=== PATIENT | male | born 1975 | race Caucasian/White ===

== ENCOUNTER 2018-06-05 13:59 | Emergency (ER) | payer SELFPAY ==
[2018-06-05] MEDS ORDERED: IPRATROPIUM/ALBUTEROL 0.5-2.5 MG/3 ML AMPUL NEB ONE (14:12)
[2018-06-05] MEDS ORDERED: METHYLPREDNISOLONE INJ 125 MG/2 ML SDV IV ONE (14:13)
[2018-06-05] MEDS ORDERED: NORMAL SALINE 1000 ML 1,000 ML IV ONE (14:15)
--- NOTE | 2018-06-05 14:17 | ER Document Report ---
ED Medical Screen (RME) - General Chief Complaint: Breathing Difficulty Stated Complaint: DIFFICULTY BREATHING,CONGESTION Time Seen by Provider: 06/05/18 14:11 TRAVEL OUTSIDE OF THE [place] IN LAST 30 DAYS: No - Related Data Allergies/Adverse Reactions: No Known Allergies Allergy (Unverified 06/05/18 14:07) Physical Exam - Vital signs Vitals: Temp Pulse Resp BP Pulse Ox 98.3 F 114 H 24 H 141/90 H 93 06/05/18 14:05 06/05/18 14:05 06/05/18 14:05 06/05/18 14:05 06/05/18 14:05 Course - Re-evaluation Re-evalutation: 06/05/18 14:16 This is a 42-year-old gentleman with moderate persistent asthma that presents for evaluation of worsening wheezing over the last month which got much worse today. He is taken 3 breathing treatments of albuterol just prior to arrival and is continuing to have great difficulty in breathing. On examination he is wheezes in all appreciable lung munoz. He is not in a true tripod position but is working to breathe at a higher level than ought be. We will initiate treatment with steroids, magnesium, albuterol. We will obtain a chest x-ray flu swab. I have seen and evaluated this patient in rapid screening evaluation. Workup has been initiated. Further diagnostics appropriate disposition and reevaluation should be performed by a second provider in the emergency department. - Vital Signs Vital signs: Temp Pulse Resp BP Pulse Ox 98.3 F 114 H 24 H 141/90 H 93 06/05/18 14:05 06/05/18 14:05 06/05/18 14:05 06/05/18 14:05 06/05/18 14:05 Doctor's Discharge - Discharge Referrals: LOCAL,NO [Primary Care Provider] - Follow up as needed
[2018-06-05 14:32] LABS: ABSOLUTE BASOPHILS # (AUTO) 0.1 10^3/uL (0.0-0.2); ABSOLUTE EOSINOPHILS # (AUTO) 0.7 10^3/uL (0.0-0.6); ABSOLUTE LYMPHOCYTES (AUTO) 0.9 10^3/uL (0.5-4.7); ABSOLUTE MONOCYTES (AUTO) 0.6 10^3/uL (0.1-1.4); ABSOLUTE NEUT (AUTO) 8.5 10^3/uL (1.7-8.2); BASOPHILS % (AUTO) 0.5 % (0-2); EOSINOPHILS % (AUTO) 6.3 % (0-6); HEMATOCRIT 47.6 % (37.9-51.0); HEMOGLOBIN 16.3 g/dL (13.5-17.0); MEAN CORPUSCULAR HEMOGLOBIN 28.1 pg (27.0-33.4); MEAN CORPUSCULAR HGB CONC 34.2 g/dL (32.0-36.0); MEAN CORPUSCULAR VOLUME 82 fl (80-97); MONOCYTES % (AUTO) 5.7 % (3-13); PLATELET COUNT 255 10^3/uL (150-450); RED BLOOD COUNT 5.81 10^6/uL (4.35-5.55); RED CELL DISTRIBUTION WIDTH 12.2 % (11.5-14.0); SEGMENTED NEUTROPHILS % (AUTO) 79.5 % (42-78); TOTAL CELLS COUNTED % (AUTO) 100 %; WHITE BLOOD COUNT 10.7 10^3/uL (4.0-10.5)
--- NOTE | 2018-06-05 14:40 | RADIOLOGY REPORT (SQ) ---
EXAM DESCRIPTION: CHEST SINGLE VIEW COMPLETED DATE/TIME: 06/05/2018 2:31 pm REASON FOR STUDY: cough, short of breath, right side pneumonia? COMPARISON: None. EXAM PARAMETERS: NUMBER OF VIEWS: One view. TECHNIQUE: Single frontal radiographic view of the chest acquired. RADIATION DOSE: NA LIMITATIONS: None. FINDINGS: LUNGS AND PLEURA: No opacities, masses or pneumothorax. No pleural effusion. MEDIASTINUM AND HILAR STRUCTURES: No masses. Contour normal. HEART AND VASCULAR STRUCTURES: Heart normal in size. Normal vasculature. BONES: No acute findings. HARDWARE: None in the chest. OTHER: No other significant finding. IMPRESSION: NO ACUTE RADIOGRAPHIC FINDING IN THE CHEST. TECHNICAL DOCUMENTATION: JOB ID: [id number] [email or web address] All Rights Reserved Reading location - IP/workstation name: [email or web address]
[2018-06-05] MEDS: MAGNESIUM SULFATE/D5W 1 GM/100 ML RTUPB IV PRN ×2 (14:42→15:15)
[2018-06-05 14:45] LABS: A TYPE INFLUENZA AG NEGATIVE (NEGATIVE); ALANINE AMINOTRANSFERASE 39 U/L (21-72); ALBUMIN 4.5 g/dL (3.5-5.0); ALKALINE PHOSPHATASE 83 U/L (38-126); ANION GAP 11 (5-19); ASPARTATE AMINO TRANSFERASE 31 U/L (17-59); B INFLUENZA AG NEGATIVE (NEGATIVE); BILIRUBIN,DIRECT 0.2 mg/dL (0.0-0.4); BILIRUBIN,TOTAL 0.6 mg/dL (0.2-1.3); BLOOD UREA NITROGEN 13 mg/dL (7-20); CALCIUM 9.7 mg/dL (8.4-10.2); CARBON DIOXIDE 28 mmol/L (22-30); CHLORIDE 98 mmol/L (98-107); GLUCOSE 128 mg/dL (75-110); POTASSIUM 4.7 mmol/L (3.6-5.0); SODIUM 137.4 mmol/L (137-145); TOTAL PROTEIN 7.6 g/dL (6.3-8.2)
--- NOTE | 2018-06-05 14:49 | ER Document Report ---
ED Respiratory Problem - General Mode of Arrival: Ambulatory Information source: Patient TRAVEL OUTSIDE OF THE [place] IN LAST 30 DAYS: No <RAH ROOT - Last Filed: 06/05/18 18:21> <JOY BARRY - Last Filed: 06/05/18 18:38> - General Chief Complaint: Breathing Difficulty Stated Complaint: DIFFICULTY BREATHING,CONGESTION Time Seen by Provider: 06/05/18 14:11 Notes: Patient is a 42 year old male that presents to the emergency department today with complaints of asthma exacerbation. Patient states he has a x20 year history of asthma and has to be hospitalized for asthma once every x3-4 years. Patient states that he has had exposure to cat dander and dust mites recently which he thinks may have lead to his asthma exacerbation. Patient admits to smoking marijuana daily. Patient is on singulair, advair, albuterol, and at home nebulizer treatments for his asthma. Patient states he has a productive cough but has not looked at the color of the sputum. Patient states he was last on steroids and antibiotics x2 months ago. (RAH ROOT) - Related Data Allergies/Adverse Reactions: No Known Allergies Allergy (Unverified 06/05/18 14:07) Past Medical History - General Information source: Patient - Social History Smoking Status: Former Smoker Frequency of alcohol use: None Drug Abuse: Marijuana Family History: Reviewed & Not Pertinent Patient has suicidal ideation: No Patient has homicidal ideation: No Pulmonary Medical History: Reports: Hx Asthma Renal/ Medical History: Denies: Hx Peritoneal Dialysis Past Surgical History: Reports: Hx Vascular Surgery - left carotid artery <RAH ROOT - Last Filed: 06/05/18 18:21> Review of Systems - Review of Systems Constitutional: No symptoms reported EENT: No symptoms reported Cardiovascular: No symptoms reported Respiratory: See HPI, Cough, Short of breath, Wheezing Gastrointestinal: No symptoms reported Genitourinary: No symptoms reported Male Genitourinary: No symptoms reported Musculoskeletal: No symptoms reported Skin: No symptoms reported Hematologic/Lymphatic: No symptoms reported Neurological/Psychological: No symptoms reported -: Yes All other systems reviewed and negative <RAH ROOT - Last Filed: 06/05/18 18:21> Physical Exam <RAH ROOT - Last Filed: 06/05/18 18:21> - Vital signs Vitals: Temp Pulse Resp BP Pulse Ox 98.3 F 114 H 24 H 141/90 H 93 06/05/18 14:05 06/05/18 14:05 06/05/18 14:05 06/05/18 14:05 06/05/18 14:05 - Notes Notes: PHYSICAL EXAM GENERAL: Alert, interacts well. Appears short of breath. HEAD: Normocephalic, atraumatic. EYES: Pupils equal, round, and reactive to light. Extraocular movements intact. ENT: Oral mucosa moist, tongue midline. NECK: Full range of motion. Supple. Trachea midline. LUNGS: Inspiratory rhonchi, expiratory wheezing, tachypneic, prolonged expiratory phase. HEART: Regular rate and rhythm. No murmurs, gallops, or rubs. EXTREMITIES: Moves all 4 extremities spontaneously. NEUROLOGICAL: Alert and oriented x3. Normal speech. PSYCH: Normal affect, normal mood. SKIN: Warm, dry, normal turgor. No rashes or lesions noted. (RAH ROOT) Course - Laboratory Result Diagrams: 06/05/18 14:18 06/05/18 14:18 <RAH ROOT - Last Filed: 06/05/18 18:21> - Laboratory Result Diagrams: 06/05/18 14:18 06/05/18 14:18 <JOY BARRY - Last Filed: 06/05/18 18:38> - Re-evaluation Re-evalutation: 06/05/18 16:21 Patient was rechecked, respiratory distress has significantly improved, patient still has wheezing with auscultation with a stethoscope however it is no longer audible while sitting at side of the bed, he is only mildly tachypneic right now, he is not hypoxic and he is not using accessory muscles of respiration. Patient will have an hour long breathing treatment and then be reassessed. 06/05/18 18:32 CBC shows slight leukocytosis 10.7 otherwise unremarked, venous blood gas grossly unremarkable, CMP unremarkable, troponin negative, flu a and B-, chest x-ray shows no acute process. Patient was given 3 DuoNeb's followed by 10 mg of albuterol as well as 2 bags of magnesium and a liter of fluid, patient was also given 125 Solu-Medrol. It was not until after the treatment of albuterol that the patient's wheezing finally completely resolved. Patient is feeling much better, the wheezing is completely resolved, patient already has a nebulizer at home, he will be placed on a steroid taper and discharged to home. (JOY BARRY) - Vital Signs Vital signs: Temp Pulse Resp BP Pulse Ox 97.7 F 114 H 24 H 141/90 H 93 06/05/18 17:37 06/05/18 14:05 06/05/18 14:05 06/05/18 14:05 06/05/18 14:05 - Laboratory Laboratory results interpreted by me: 06/05/18 06/05/18 14:18 14:18 WBC 10.7 H RBC 5.81 H Seg Neutrophils % 79.5 H Lymphocytes % 8.0 L Eosinophils % 6.3 H Absolute Neutrophils 8.5 H Absolute Eosinophils 0.7 H Glucose 128 H Critical Care Note - Critical Care Note Total time excluding time spent on procedures (mins): 35 <JOY BARRY - Last Filed: 06/05/18 18:38> Discharge <RAH ROOT - Last Filed: 06/05/18 18:21> <JOY BARRY - Last Filed: 06/05/18 18:38> - Discharge Clinical Impression: Acute asthma exacerbation Qualifiers: Asthma severity: severe Asthma persistence: persistent Qualified Code(s): J45.5 1 - Severe persistent asthma with (acute) exacerbation Condition: Stable Disposition: HOME, SELF-CARE Prescriptions: Albuterol Sulfate [Ventolin 0.083% Neb 2.5 mg/3 mL Ampul] 2.5 mg NEB Q4HP PRN #30 vial.neb PRN Reason: Prednisone [Deltasone 10 mg Tablet] 10 mg PO ASDIR PRN #21 tablet PRN Reason: Referrals: RANCHO TSE MD [COMMUNITY BASED STAFF] - Follow up as needed Scribe Attestation: 06/05/18 18:37 I personally performed the services described in the documentation, reviewed and edited the documentation which was dictated to the scribe in my presence, and it accurately records my words and actions. (JOY BARRY) Scribe Documentation - Scribe Written by Scribe:: Adalgisa Joy, 06/05/2018 1528 acting as scribe for :: Fan <RAH ROOT - Last Filed: 06/05/18 18:21>
[2018-06-05 14:58] LABS: VENOUS BLOOD BASE EXCESS 1.3 mmol/L; VENOUS BLOOD HCO3 28.1 mmol/L (20-32); VENOUS BLOOD PCO2 52.8 mmHg (35-63); VENOUS BLOOD PH 7.34 (7.30-7.42)
[2018-06-05] MEDS ORDERED: ALBUTEROL SULFATE 0.083% NEB 2.5 MG/3 ML AMPUL NEB ONE (16:17)
[2018-06-05 18:57] VITALS: BP 134/84
== END 2018-06-05 18:57 | disposition home or self-care (01) ==
LOC: ER 13:59
DX: J45.51 Severe persistent asthma with (acute) exacerbation (principal)
CPT/HCPCS: 94640 ×2; 99291; 96375; 96365; 36415; 85025; 80053; 84484; 82803; 87804; 71045; J2930; J3475; J7030; J7620

== ENCOUNTER 2018-07-30 03:11 | Inpatient (IN) | payer SELFPAY ==
[2018-07-30] MEDS ORDERED: IPRATROPIUM/ALBUTEROL 0.5-2.5 MG/3 ML AMPUL NEB ONE ×2 (03:22→03:23)
[2018-07-30] MEDS ORDERED: METHYLPREDNISOLONE INJ 125 MG/2 ML SDV IV ONE (03:24)
[2018-07-30] MEDS ORDERED: NORMAL SALINE 1000 ML 1,000 ML IV ONE (03:24)
[2018-07-30] MEDS ORDERED: MAGNESIUM SULFATE/D5W 2 GM/200 ML RTUPB IV ONE (03:29)
[2018-07-30] MEDS: MAGNESIUM SULFATE/D5W 1 GM/100 ML RTUPB IV SCH ×2 (03:29→04:00)
[2018-07-30 04:09] LABS: ABSOLUTE EOSINOPHILS # (AUTO) 0.8 10^3/uL (0.0-0.6); ABSOLUTE LYMPHOCYTES (AUTO) 1.6 10^3/uL (0.5-4.7); ABSOLUTE MONOCYTES (AUTO) 0.7 10^3/uL (0.1-1.4); ABSOLUTE NEUT (AUTO) 8.1 10^3/uL (1.7-8.2); BASOPHILS % (AUTO) 0.4 % (0-2); EOSINOPHILS % (AUTO) 7.2 % (0-6); HEMATOCRIT 43.5 % (37.9-51.0); HEMOGLOBIN 14.8 g/dL (13.5-17.0); LYMPHOCYTES % (AUTO) 14.5 % (13-45); MEAN CORPUSCULAR HEMOGLOBIN 27.5 pg (27.0-33.4); MEAN CORPUSCULAR HGB CONC 33.9 g/dL (32.0-36.0); MEAN CORPUSCULAR VOLUME 81 fl (80-97); MONOCYTES % (AUTO) 5.8 % (3-13); PLATELET COUNT 203 10^3/uL (150-450); RED BLOOD COUNT 5.38 10^6/uL (4.35-5.55); RED CELL DISTRIBUTION WIDTH 12.3 % (11.5-14.0); SEGMENTED NEUTROPHILS % (AUTO) 72.1 % (42-78); TOTAL CELLS COUNTED % (AUTO) 100 %; WHITE BLOOD COUNT 11.2 10^3/uL (4.0-10.5)
--- NOTE | 2018-07-30 04:21 | RADIOLOGY REPORT (SQ) ---
EXAM DESCRIPTION: XR CHEST 2 VIEWS COMPLETED DATE/TME: 07/30/2018 03:31 CLINICAL HISTORY: 43 years Male, sob COMPARISON: 06/05/18 NUMBER OF VIEWS/TECHNIQUE: 2, Frontal, Lateral FINDINGS: Increased lung volume, clear parenchyma, normal cardiac silhouette, and intact bony thorax. IMPRESSION: No acute cardiopulmonary findings.
[2018-07-30 04:26] LABS: ALANINE AMINOTRANSFERASE 32 U/L (21-72); ALBUMIN 3.6 g/dL (3.5-5.0); ALKALINE PHOSPHATASE 59 U/L (38-126); ANION GAP 9 (5-19); ASPARTATE AMINO TRANSFERASE 17 U/L (17-59); BILIRUBIN,DIRECT 0.1 mg/dL (0.0-0.4); BILIRUBIN,TOTAL 0.5 mg/dL (0.2-1.3); BLOOD UREA NITROGEN 12 mg/dL (7-20); CALCIUM 8.3 mg/dL (8.4-10.2); CARBON DIOXIDE 26 mmol/L (22-30); CHLORIDE 103 mmol/L (98-107); GLUCOSE 151 mg/dL (75-110); POTASSIUM 3.8 mmol/L (3.6-5.0); SODIUM 137.6 mmol/L (137-145)
[2018-07-30 05:11] LABS: A TYPE INFLUENZA AG NEGATIVE (NEGATIVE); B INFLUENZA AG NEGATIVE (NEGATIVE)
[2018-07-30 05:23] LABS: VENOUS BLOOD BASE EXCESS 1.5 mmol/L; VENOUS BLOOD HCO3 27.3 mmol/L (20-32); VENOUS BLOOD PCO2 47.6 mmHg (35-63); VENOUS BLOOD PH 7.38 (7.30-7.42)
[2018-07-30] MEDS ORDERED: ALBUTEROL SULFATE 0.083% NEB 2.5 MG/3 ML AMPUL NEB ONE (05:25)
--- NOTE | 2018-07-30 05:26 | ER Document Report ---
ED Respiratory Problem - General Chief Complaint: Shortness Of Breath Stated Complaint: DIFFICULTY BREATHING/ASTHMA Time Seen by Provider: 07/30/18 03:33 Notes: Patient is a 43-year-old male presents to the emergency department for generalized respiratory distress. Patient states he does have a history of asthma and has been using his at home albuterol, Advair, Singulair without relief. Patient is denying any generalized cough or congestion. He is also denying any fever. Patient states his asthma started "acting up" around [place] and has never really resolved. Patient is denying any history of intubations or BiPAP use. Patient is denying any chest pain, nausea, vomiting, abdominal pain. Past medical history: Asthma Medications: Albuterol, singular, Advair Allergies: None TRAVEL OUTSIDE OF THE [place] IN LAST 30 DAYS: No - Related Data Allergies/Adverse Reactions: No Known Allergies Allergy (Verified 07/30/18 06:03) Past Medical History - General Information source: Patient - Social History Smoking Status: Former Smoker Frequency of alcohol use: None Drug Abuse: Marijuana Family History: Reviewed & Not Pertinent Patient has suicidal ideation: No Patient has homicidal ideation: No Pulmonary Medical History: Reports: Hx Asthma Renal/ Medical History: Denies: Hx Peritoneal Dialysis Past Surgical History: Reports: Hx Vascular Surgery - left carotid artery Review of Systems - Review of Systems Constitutional: See HPI EENT: See HPI Cardiovascular: See HPI Respiratory: See HPI Gastrointestinal: No symptoms reported Genitourinary: No symptoms reported Male Genitourinary: No symptoms reported Musculoskeletal: No symptoms reported Skin: No symptoms reported Hematologic/Lymphatic: No symptoms reported Neurological/Psychological: No symptoms reported Physical Exam - Vital signs Vitals: Temp Pulse Resp BP Pulse Ox 98.1 F 100 28 H 150/104 H 95 07/30/18 03:15 07/30/18 03:15 07/30/18 03:15 07/30/18 03:15 07/30/18 03:15 - Notes Notes: GENERAL: Alert, interacts well. Tachypneic with tracheal tugging noted HEAD: Normocephalic, atraumatic. EYES: Pupils equal, round, and reactive to light. Extraocular movements intact. ENT: Oral mucosa moist, tongue midline. Nares patent, TM's intact, nonery thematous, nonbulging bilaterally. Pharynx within normal limits no palatal petechiae noted NECK: Full range of motion. Supple. Trachea midline. LUNGS: Diminished inspiratory all lung munoz, wheezes heard on expiration in all lung munoz, no rales, or rhonchi. HEART: Regular rate and rhythm. No murmur ABDOMEN: Soft, non-tender. Non-distended. Bowel sounds present in all 4 quadrants. EXTREMITIES: Moves all 4 extremities spontaneously. No edema, normal radial and dorsalis pedis pulses bilaterally. No cyanosis. BACK: no cervical, thoracic, lumbar midline tenderness. No saddle anesthesia, normal distal neurovascular exam. NEUROLOGICAL: Alert and oriented x3. Normal speech. cranial nerves II through XII grossly intact. PSYCH: Normal affect, normal mood. SKIN: Warm, dry, normal turgor. No rashes or lesions noted. Course - Re-evaluation Re-evalutation: 07/30/18 05:28 Patient now has inspiratory and expiratory wheezes throughout all lung munoz. His room air oxygen saturation is at 91%. He continues to be tachypneic. Continuous albuterol treatment is ordered at this time. Patient's VBG is within normal limits and his influenza testing is negative. Patient's chest x-ray shows no signs of pneumonia, pneumothorax, rib fractures. Awaiting return phone call from Dr. Schmid hospitalist for admission for status asthmaticus. 07/30/18 05:34 Discussed case with hospitalist Dr. Schmid who will admit the patient to [facility]. Patient is currently undergoing a continuous albuterol nebulizer treatment. - Vital Signs Vital signs: Temp Pulse Resp BP Pulse Ox 98.1 F 100 16 132/84 H 93 07/30/18 03:15 07/30/18 03:15 07/30/18 05:30 07/30/18 05:30 07/30/18 05:30 - Laboratory Result Diagrams: 07/30/18 03:54 07/30/18 03:54 Laboratory results interpreted by me: 07/30/18 07/30/18 03:54 03:54 WBC 11.2 H Eosinophils % 7.2 H Absolute Eosinophils 0.8 H Glucose 151 H Calcium 8.3 L Total Protein 6.0 L Discharge - Discharge Clinical Impression: Status asthmaticus Qualifiers: Asthma severity: moderate Asthma persistence: persistent Qualified Code(s): J45.42 - Moderate persistent asthma with status asthmaticus Condition: Stable Disposition: ADMITTED OBSERVATION Admitting Provider: Hospitalist - Dr. Schmid Unit Admitted: Telemetry
[2018-07-30] MEDS ORDERED: CHLORPHENIRAMINE MALEATE 4 MG TABLET PO ONE (05:34)
[2018-07-30] MEDS ORDERED: IPRATROPIUM/ALBUTEROL 0.5-2.5 MG/3 ML AMPUL NEB PRN (05:34)
[2018-07-30] MEDS ORDERED: GUAIFENESIN SYRP 200 MG/10 ML UDC PO PRN (05:34)
[2018-07-30] MEDS ORDERED: ACETAMINOPHEN 325 MG TABLET PO PRN ×2 (05:34)
[2018-07-30] MEDS ORDERED: LEVOFLOXACIN 750 MG/D5W RTU 750 MG/150 ML RTUPB IV ONE (06:00)
[2018-07-30] MEDS ORDERED: FLUTICASONE NASAL SPRAY 50 MCG/SPRY 120 SPRAY/16 GM NASL ONE ×2 (06:00→10:30)
[2018-07-30] MEDS ORDERED: VANCOMYCIN HCL 1,500 MG in DEXTROSE 5%-WATER 250 ML IV ONE (06:20)
[2018-07-30] MEDS: HEPARIN SOD (PORCINE) 5,000 UNIT/ML 1 ML SYRINGE SUBCUT SCH ×3 (06:21→22:09)
[2018-07-30] MEDS: LANSOPRAZOLE 30 MG TAB.RAP.DR PO SCH ×2 (06:21→17:19)
[2018-07-30] MEDS ORDERED: VANCOMYCIN HCL 0 MG in DEXTROSE 5%-WATER 250 ML IV NR (06:30)
--- NOTE | 2018-07-30 06:31 | PDOC H&P ---
History of Present Illness Admission Date/PCP: 07/30/18 05:45 NO LOCALMD Patient complains of: Shortness of breath History of Present Illness: KERON LIRIANO is a 43 year old male with a past medical history of COPD, tobacco dependence, chronic bronchitis and IV drug abuse. Patient presents with 24 hours of worsening shortness of breath associated with wheeze and a nonproductive cough denying fever admitting palpitations. He is started on continuous albuterol nebulizer with minimal improvement and referred to the hospitalist for admission. Patient denies recent antibiotics but admits to recent IV heroin use. Past Medical History Cardiac Medical History: Reports: None Pulmonary Medical History: Reports: Asthma, Bronchitis, Chronic Obstructive Pulmonary Disease (COPD) EENT Medical History: Reports: None Neurological Medical History: Reports: None Endocrine Medical History: Reports: None Renal/ Medical History: Reports: None Malignancy Medical History: Reports: None GI Medical History: Reports: None Musculoskeltal Medical History: Reports: None Psychiatric Medical History: Reports: Substance Abuse, Tobacco Dependency Past Surgical History Past Surgical History: Reports: Vascular Surgery - left carotid artery Social History Information Source: Patient Smoking Status: Former Smoker Frequency of Alcohol Use: Occasional Drugs: Heroin, Marijuana - Advance Directive Resuscitation Status: Full Code Family History Family History: COPD Parental Family History Reviewed: Yes Children Family History Reviewed: Yes Sibling(s) Family History Reviewed.: Yes Medication/Allergy Home Medications: Albuterol Sulfate [Ventolin 0.083% Neb 2.5 mg/3 mL Ampul] 2.5 mg NEB Q4HP PRN #30 vial.neb 06/05/18 Prednisone [Deltasone 10 mg Tablet] 10 mg PO ASDIR PRN #21 tablet 06/05/18 Allergies/Adverse Reactions: No Known Allergies Allergy (Verified 07/30/18 06:03) Review of Systems Constitutional: PRESENT: as per HPI, anorexia, chills, fatigue, weakness, weight loss Eyes: ABSENT: visual disturbances Ears: ABSENT: hearing changes Cardiovascular: PRESENT: palpitations. ABSENT: chest pain, dyspnea on exertion, edema, orthropnea Respiratory: PRESENT: cough, dyspnea, sputum. ABSENT: hemoptysis Gastrointestinal: ABSENT: abdominal pain, constipation, diarrhea, hematemesis, hematochezia, nausea, vomiting Genitourinary: ABSENT: dysuria, hematuria Musculoskeletal: ABSENT: joint swelling Integumentary: ABSENT: rash, wounds Neurological: ABSENT: abnormal gait, abnormal speech, confusion, dizziness, focal weakness, syncope Psychiatric: ABSENT: anxiety, depression, homidical ideation, suicidal ideation Endocrine: ABSENT: cold intolerance, heat intolerance, polydipsia, polyuria Hematologic/Lymphatic: ABSENT: easy bleeding, easy bruising Physical Exam Vital Signs: Temp Pulse Resp BP Pulse Ox 98.1 F 100 16 132/84 H 93 07/30/18 03:15 07/30/18 03:15 07/30/18 05:30 07/30/18 05:30 07/30/18 05:30 Intake & Output 07/28/18 07/29/18 07/30/18 11:59 11:59 11:59 Intake Total 200 Balance 200 Weight 76.5 kg General appearance: PRESENT: cooperative, severe distress, thin Head exam: PRESENT: atraumatic, normocephalic Eye exam: PRESENT: conjunctiva pink, EOMI, PERRLA. ABSENT: scleral icterus Ear exam: PRESENT: normal external ear exam Mouth exam: PRESENT: moist, tongue midline Neck exam: ABSENT: carotid bruit, JVD, lymphadenopathy, thyromegaly Respiratory exam: PRESENT: accessory muscle use, crackles, prolonged expiratory phas, rhonchi, symmetrical, tachypnea, wheezes Cardiovascular exam: PRESENT: +S1, +S2, systolic murmur. ABSENT: diastolic murmur, gallop Pulses: PRESENT: normal dorsalis pedis pul Vascular exam: PRESENT: normal capillary refill GI/Abdominal exam: PRESENT: normal bowel sounds, soft. ABSENT: distended, guarding, mass, organolmegaly, rebound, tenderness Rectal exam: PRESENT: deferred Extremities exam: PRESENT: full ROM, other - Bilateral decubital tracking with scarring suggestive of IV drug abuse, erythema, mild inflammation without exudate or ulcer. ABSENT: calf tenderness, clubbing, pedal edema Neurological exam: PRESENT: alert, awake, oriented to person, oriented to place, oriented to time, oriented to situation, CN II-XII grossly intact. ABSENT: motor sensory deficit Psychiatric exam: PRESENT: appropriate affect, normal mood. ABSENT: homicidal ideation, suicidal ideation Skin exam: PRESENT: dry, intact, warm. ABSENT: cyanosis, rash Results Laboratory Results: 07/30/18 03:54 07/30/18 03:54 07/30/18 07/30/18 07/30/18 03:54 03:54 05:08 WBC 11.2 H RBC 5.38 Hgb 14.8 Hct 43.5 MCV 81 MCH 27.5 MCHC 33.9 RDW 12.3 Plt Count 203 Seg Neutrophils % 72.1 Lymphocytes % 14.5 Monocytes % 5.8 Eosinophils % 7.2 H Basophils % 0.4 Absolute Neutrophils 8.1 Absolute Lymphocytes 1.6 Absolute Monocytes 0.7 Absolute Eosinophils 0.8 H Absolute Basophils 0.0 VBG pH 7.38 VBG pCO2 47.6 VBG HCO3 27.3 VBG Base Excess 1.5 Sodium 137.6 Potassium 3.8 Chloride 103 Carbon Dioxide 26 Anion Gap 9 BUN 12 Creatinine 0.80 Est GFR ( Amer) > 60 Est GFR (Non-Af Amer) > 60 Glucose 151 H Calcium 8.3 L Total Bilirubin 0.5 AST 17 ALT 32 Alkaline Phosphatase 59 Total Protein 6.0 L Albumin 3.6 Impressions: Chest X-Ray 07/30/18 03:31 IMPRESSION: No acute cardiopulmonary findings. Assessment & Plan - Diagnosis (1) Pneumonia Is this a current diagnosis for this admission?: Yes Plan: Complicated by IV drug use, empiric antibiotics initiated, albuterol and Atrovent, follow-up CBC and blood culture (2) COPD exacerbation Is this a current diagnosis for this admission?: Yes Plan: Albuterol and Atrovent, flutter valve, Solu-Medrol. (3) IV drug abuse Is this a current diagnosis for this admission?: Yes Plan: Patient admits recent IV heroin use, anticipate withdrawal, consider opiates as needed, follow-up CT chest and 2D echo (4) Systolic murmur Is this a current diagnosis for this admission?: Yes Plan: Complicated by IV drug abuse, follow-up 2D echo and blood culture. Vancomycin initiated empirically - Time Time Spent: 50 to 70 Minutes - Inpatient Certification Medical Necessity: Need Close Monitoring Due to Risk of Patient Decompensation
--- NOTE | 2018-07-30 06:56 | RADIOLOGY REPORT (SQ) ---
EXAM DESCRIPTION: CT CHEST WITHOUT IV CONTRAST COMPLETED DATE/TME: 07/30/2018 00:00 CLINICAL HISTORY: 43 years Male, reactive airway c iv drug abuse Comparison: None. Technique: No contrast. Coronal and sagittal reformat. This exam was performed according to our departmental dose-optimization program, which includes automated exposure control, adjustment of the mA and/or kV according to patient size and/or use of iterative reconstruction technique. [facility]: Dose Right [facility]: CareDose [facility]: Dose Right [facility]: Teradose 4D [facility]: [employer] LIMITATIONS: None Findings: Mild mixed interstitial and scattered groundglass patchiness of bilateral upper lobes. Increased lung volume. Unenhanced inferior neck, axillae, mediastinum, airway, lymphatics, heart, vasculature, upper abdomen, and musculoskeleton appear otherwise unremarkable. Impression: Mild scattered groundglass patchiness bilateral upper lobes may indicate atypical pneumonitis. Differential diagnosis includes interstitial lung disease.
--- NOTE | 2018-07-30 07:34 | EKG REPORT ---
SEVERITY:- OTHERWISE NORMAL ECG - SINUS TACHYCARDIA RIGHT AXIS DEVIATION : Confirmed by: Henry Mckinnon MD 30-Jul-2018 07:33:27
[2018-07-30] MEDS: IPRATROPIUM/ALBUTEROL 0.5-2.5 MG/3 ML AMPUL NEB SCH ×3 (07:51→21:59)
[2018-07-30] MEDS ORDERED: PIPERACILLIN/TAZOBACTAM 4.5 GM VIAL IV ONE (09:01)
[2018-07-30] MEDS: PIPERACILLIN SODIUM/TAZOBACTAM 4.5 GM in NORMAL SALINE 100 ML IV SCH ×2 (11:39→17:22)
[2018-07-30] MEDS: METHYLPREDNISOLONE INJ 125 MG/2 ML SDV IV SCH ×2 (13:05→22:09)
[2018-07-30] MEDS: LORAZEPAM INJ 2 MG/1 ML VIAL IV PRN (13:05)
--- NOTE | 2018-07-30 17:30 | Progress Note ---
Provider Note Provider Note: This is a 43 years old male patient who presented with chief complaint of difficulty breathing and shortness of breath. Patient has past medical history of tobacco dependence, COPD and IV drug abuse. Patient admits that he has been using IV heroin. The admitting physician suspected new onset murmur so his working him up for infective endocarditis. His blood culture and echo are pending. Patient has been started empirically on vancomycin by the on-call physician and added Zosyn on top . I accept this patient and I will follow him
--- NOTE | 2018-07-30 18:51 | XCELERA REPORT ---
[address] [address] Transthoracic Echocardiogram Report Name: KERON LIRIANO Age: 43 yrs Gender: Male : 1975 Patient Status: Inpatient Patient Location: [address] [place] [address] Study Date: 07/30/2018 02:50 PM Height: 71 in Weight: 168 lb BSA: 2.0 m2 Procedure: A two-dimensional transthoracic echocardiogram with color flow and Doppler was performed. Study Quality: Good. Reason For Study: iv drug abuse systolic murmur History: iv drug abuse systolic murmur. Ordering Physician: MAMI SCHNEIDER Performed By: Andreea Peguero Interpretation Summary The left ventricle is normal in size. There is normal left ventricular wall thickness. LV EF is > than 70% The left ventricular ejection fraction is within normal limits. Doppler measurements suggest impaired left ventricular relaxation, which is associated with grade I/IV or mild diastolic dysfunction The left ventricular wall motion is normal. There is no thrombus. There is no ventricular septal defect visualized. The right ventricle is normal in size and function. The right atrium is normal. The left atrial size is normal. The interatrial septum is intact with no evidence for an atrial septal defect. There is no Doppler evidence for an interatrial shunt Thre is mild bowing of the anterior mitral valve leaflet without any prolapse. There is no vegetation seen on the mitral valve. There is no mitral valve stenosis. There is a trace amount of mitral regurgitation There is no aortic valvular vegetation. There is no aortic valve stenosis There is no LVOT obstruction. No aortic regurgitation is present. There is no tricuspid valve vegetation. There is no tricuspid stenosis. There is a trace amount of tricuspid regurgitation Right ventricular systolic pressure is normal. RVSP is 23 to 28 mm of Hg , with RA mean of 5 to 10. There is no pulmonic valvular stenosis. There is no pulmonic valvular regurgitation. The aortic root is normal size. The inferior vena cava appeared normal and decreased > 50% with respiration (RAP 5-10 mmHg) There is no pericardial effusion. MMode/2D Measurements & Calculations RVDd: 3.3 cm LVIDd: 4.7 cm FS: 46.2 % Ao root diam: 3.3 cm IVSd: 0.97 cm LVIDs: 2.5 cm EDV(Teich): LVPWd: 1.00 cm 102.6 ml Ao root area: ESV(Teich): 8.7 cm2 23.0 ml EF(Teich): 77.6 % EDV(MOD-sp4): SV(MOD-sp4): 105.2 ml 68.6 ml ESV(MOD-sp4): 36.6 ml EF(MOD-sp4): 65.2 % Doppler Measurements & Calculations MV E max vadim: MV dec slope: Ao V2 max: LV V1 max P.7 cm/sec 137.0 cm/sec 5.4 mmHg MV A max vadim: 257.9 cm/sec2 Ao max PG: LV V1 max: 78.0 cm/sec MV dec time: 0.26 sec7.5 mmHg 116.6 cm/sec MV E/A: 0.86 PA V2 max: TR max vadim: 110.6 cm/sec 214.4 cm/sec PA max P.9 mmHg TR max P.4 mmHg Left Ventricle The left ventricle is normal in size. There is normal left ventricular wall thickness. LV EF is > than 70%. The left ventricular ejection fraction is within normal limits. Doppler measurements suggest impaired left ventricular relaxation, which is associated with grade I/IV or mild diastolic dysfunction. The left ventricular wall motion is normal. There is no thrombus. There is no ventricular septal defect visualized. Right Ventricle The right ventricle is normal in size and function. Atria The right atrium is normal. The left atrial size is normal. The interatrial septum is intact with no evidence for an atrial septal defect. There is no Doppler evidence for an interatrial shunt. Mitral Valve Thre is mild bowing of the anterior mitral valve leaflet without any prolapse. There is no vegetation seen on the mitral valve. There is no mitral valve stenosis. There is a trace amount of mitral regurgitation. Aortic Valve There is no aortic valvular vegetation. There is no aortic valve stenosis. There is no LVOT obstruction. No aortic regurgitation is present. Tricuspid Valve There is no tricuspid valve vegetation. There is no tricuspid stenosis. There is a trace amount of tricuspid regurgitation. Right ventricular systolic pressure is normal. RVSP is 23 to 28 mm of Hg , with RA mean of 5 to 10. Pulmonic Valve There is no pulmonic valvular stenosis. There is no pulmonic valvular regurgitation. Great Vessels The aortic root is normal size. The inferior vena cava appeared normal and decreased > 50% with respiration (RAP 5-10 mmHg). Effusions There is no pericardial effusion. : MAMI SCHNEIDER Lakshmi
[2018-07-30] MEDS: VANCOMYCIN HCL 1,000 MG in DEXTROSE 5%-WATER 250 ML IV SCH (22:10)
[2018-07-30] MEDS: FLUTICASONE NASAL SPRAY 50 MCG/SPRY 120 SPRAY/16 GM NASL SCH (22:11)
[2018-07-31] MEDS: PIPERACILLIN SODIUM/TAZOBACTAM 4.5 GM in NORMAL SALINE 100 ML IV SCH ×4 (00:50→17:31)
[2018-07-31] MEDS: IPRATROPIUM/ALBUTEROL 0.5-2.5 MG/3 ML AMPUL NEB SCH ×4 (02:03→20:35)
[2018-07-31 04:37] LABS: HEPATITIS A AB IGM Negative (Negative); HEPATITIS B CORE AB IGM Negative (Negative); HEPATITS B SURFACE ANTIGEN Negative (Negative)
[2018-07-31] MEDS: VANCOMYCIN HCL 1,000 MG in DEXTROSE 5%-WATER 250 ML IV SCH ×3 (05:00→22:10)
[2018-07-31] MEDS: METHYLPREDNISOLONE INJ 125 MG/2 ML SDV IV SCH ×3 (05:38→22:10)
[2018-07-31 05:46] LABS: ANION GAP 13 (5-19); BLOOD UREA NITROGEN 19 mg/dL (7-20); CALCIUM 9.5 mg/dL (8.4-10.2); CARBON DIOXIDE 24 mmol/L (22-30); CHLORIDE 102 mmol/L (98-107); GLUCOSE 143 mg/dL (75-110); POTASSIUM 5.1 mmol/L (3.6-5.0)
[2018-07-31 06:28] LABS: HEMATOCRIT 42.6 % (37.9-51.0); HEMOGLOBIN 14.4 g/dL (13.5-17.0); MEAN CORPUSCULAR HEMOGLOBIN 27.4 pg (27.0-33.4); MEAN CORPUSCULAR HGB CONC 33.7 g/dL (32.0-36.0); MEAN CORPUSCULAR VOLUME 81 fl (80-97); PLATELET COUNT 221 10^3/uL (150-450); RED BLOOD COUNT 5.24 10^6/uL (4.35-5.55); RED CELL DISTRIBUTION WIDTH 12.6 % (11.5-14.0); WHITE BLOOD COUNT 13.1 10^3/uL (4.0-10.5)
[2018-07-31] MEDS: LANSOPRAZOLE 30 MG TAB.RAP.DR PO SCH ×2 (06:47→17:27)
[2018-07-31] MEDS: HEPARIN SOD (PORCINE) 5,000 UNIT/ML 1 ML SYRINGE SUBCUT SCH ×3 (06:47→22:11)
[2018-07-31 07:27] LABS: ABSOLUTE LYMPHOCYTES# (MANUAL) 0.7 10^3/uL (0.5-4.7); ABSOLUTE MONOCYTES # (MANUAL) 0.3 10^3/uL (0.1-1.4); ABSOLUTE NEUTROPHILS# (MANUAL) 12.2 10^3/uL (1.7-8.2); BAND NEUTROPHILS % (MANUAL) 2 % (3-5); BASOPHILS % (MANUAL) 0 % (0-2); EOSINOPHILS % (MANUAL) 0 % (0-6); LYMPHOCYTES % (MANUAL) 5 % (13-45); MONOCYTES % (MANUAL) 2 % (3-13); SEGMENTED NEUTROPHILS % (MAN) 91 % (42-78); TOTAL CELLS COUNTED 100
[2018-07-31 07:28] LABS: PLATELET COMMENT ADEQUATE; RBC MORPHOLOGY COMMENT NORMO-CYTIC/CHROMIC; TOXIC GRANULATION SLIGHT
[2018-07-31 07:35] LABS: HEPATITIS C VIRUS ANTIBODY <0.1 s/co ratio (0.0-0.9)
[2018-07-31] MEDS: FLUTICASONE NASAL SPRAY 50 MCG/SPRY 120 SPRAY/16 GM NASL SCH ×2 (09:57→22:10)
[2018-07-31] MEDS: LORAZEPAM INJ 2 MG/1 ML VIAL IV PRN (09:57)
[2018-07-31] MEDS ORDERED: LEVOFLOXACIN 750 MG/D5W RTU 750 MG/150 ML RTUPB IV SCH (10:00)
[2018-08-01] MEDS: PIPERACILLIN SODIUM/TAZOBACTAM 4.5 GM in NORMAL SALINE 100 ML IV SCH ×3 (00:52→13:36)
[2018-08-01] MEDS: IPRATROPIUM/ALBUTEROL 0.5-2.5 MG/3 ML AMPUL NEB SCH ×3 (01:50→13:54)
[2018-08-01] MEDS: VANCOMYCIN HCL 1,000 MG in DEXTROSE 5%-WATER 250 ML IV SCH (05:53)
[2018-08-01] MEDS: HEPARIN SOD (PORCINE) 5,000 UNIT/ML 1 ML SYRINGE SUBCUT SCH ×2 (05:53→13:36)
[2018-08-01] MEDS: METHYLPREDNISOLONE INJ 125 MG/2 ML SDV IV SCH ×2 (05:53→13:36)
[2018-08-01] MEDS: LANSOPRAZOLE 30 MG TAB.RAP.DR PO SCH (05:53)
[2018-08-01 07:07] LABS: VANCOMYCIN,TROUGH 9.1 ug/mL (5.0-20.0)
[2018-08-01] MEDS ORDERED: VANCOMYCIN HCL 500 MG in DEXTROSE 5%-WATER 100 ML IV ONE (08:00)
--- NOTE | 2018-08-01 08:48 | PDOC PROGRESS REPORT ---
Subjective Progress Note for:: 07/31/18 Subjective:: Patient feels better today. Breathing is more comfortable. Reason For Visit: COPD EXACERBATION BRONCHITIS REACTIVE AIRWAY DZ Physical Exam Vital Signs: Temp Pulse Resp BP Pulse Ox 97.8 F 101 H 18 134/80 H 95 07/31/18 15:40 07/31/18 15:40 07/31/18 15:40 07/31/18 15:40 07/31/18 15:40 Pulse Oximeter Continuous Start: 07/30/18 05:34 Freq: RTQ4 Status: Complete Protocol: Document 07/30/18 12:00 [facility] (Rec: 07/30/18 12:01 [facility] [id number]) Pulse Oximetry Assessment Oxygen Saturation (92-100) 97 Oxygen Flow Rate (L/min) 2 Oxygen Delivery Method Nasal Cannula Equipment Usage Equipment Standby Continuous SpO2 Machine # -- Intake & Output 07/30/18 07/31/18 08/01/18 06:59 06:59 06:59 Intake Total 1200 2550 450 Output Total 575 1100 Balance 625 1450 450 Weight 76.5 kg 78.4 kg General appearance: PRESENT: no acute distress, cooperative, well-developed Head exam: PRESENT: normocephalic Ear exam: PRESENT: normal external ear exam Respiratory exam: PRESENT: symmetrical, unlabored, wheezes - Scattered inspiratory and expiratory. ABSENT: accessory muscle use, rales, rhonchi, stridor Cardiovascular exam: PRESENT: RRR, +S1, +S2, systolic murmur - 2/6 GI/Abdominal exam: PRESENT: normal bowel sounds, soft. ABSENT: distended, tenderness Musculoskeletal exam: PRESENT: normal inspection Neurological exam: PRESENT: alert, awake, oriented to person, oriented to place, oriented to time, oriented to situation, CN II-XII grossly intact Psychiatric exam: PRESENT: appropriate affect, normal mood. ABSENT: agitated, anxious Focused psych exam: ABSENT: delusional, restlessness Results Laboratory Results: 07/31/18 04:22 07/31/18 04:22 07/31/18 07/31/18 04:22 04:22 WBC 13.1 H RBC 5.24 Hgb 14.4 Hct 42.6 MCV 81 MCH 27.4 MCHC 33.7 RDW 12.6 Plt Count 221 Seg Neutrophils % Not Reportable Lymphocytes % Not Reportable Monocytes % Not Reportable Eosinophils % Not Reportable Basophils % Not Reportable Absolute Neutrophils Not Reportable Absolute Lymphocytes Not Reportable Absolute Monocytes Not Reportable Absolute Eosinophils Not Reportable Absolute Basophils Not Reportable Sodium 139.0 Potassium 5.1 H Chloride 102 Carbon Dioxide 24 Anion Gap 13 BUN 19 Creatinine 0.95 Est GFR ( Amer) > 60 Est GFR (Non-Af Amer) > 60 Glucose 143 H Calcium 9.5 Impressions: Chest X-Ray 07/30/18 03:31 IMPRESSION: No acute cardiopulmonary findings. Assessment & Plan - Diagnosis (1) Pneumonia Qualifiers: Pneumonia type: due to unspecified organism Laterality: bilateral Is this a current diagnosis for this admission?: Yes Plan: Bilateral groundglass appearance on CT scan. Possible atypical pneumonitis. No significant productive cough. Still with bilateral wheezes. Will continue current antibiotic therapy. The patient does have a history of IV drug use. There were no areas consistent with septic emboli by CT scan. (2) COPD exacerbation Is this a current diagnosis for this admission?: Yes Plan: Oxygen supplementation with aggressive inhaler regimen. (3) Systolic murmur Is this a current diagnosis for this admission?: Yes Plan: With history of IV drug use and murmur endocarditis is a consideration. The patient did have a positive blood culture for gram-positive cocci. Awaiting final results. Could still be a contaminant. The patient is on Zosyn and vancomycin at this time. (4) IV drug abuse Is this a current diagnosis for this admission?: Yes Plan: The patient was on Subutex as an outpatient. Monitor for any evidence of withdrawal since his last use of her when he was a few days prior to admission. - Time Time Spent with patient: 15-24 minutes Medications reviewed and adjusted accordingly: Yes Anticipated discharge: Home
[2018-08-01] MEDS: FLUTICASONE NASAL SPRAY 50 MCG/SPRY 120 SPRAY/16 GM NASL SCH (09:15)
[2018-08-01] MEDS ORDERED: VANCOMYCIN HCL 1,500 MG in DEXTROSE 5%-WATER 250 ML IV SCH (14:00)
[2018-08-01 15:36] VITALS: BP 120/78
--- NOTE | 2018-08-01 19:45 | PDOC DISCHARGE SUMMARY ---
General - Admit/Disc Date/PCP Admission Date/Primary Care Provider: 07/30/18 09:17 Discharge Date: 08/01/18 - Discharge Diagnosis (1) Pneumonia Is this a current diagnosis for this admission?: Yes Summary: The patient is already off of oxygen therapy. His breathing is much easier. He still has trace wheeze with occasional rhonchi but he is stable for home. He does agree with this plan. He will continue antibiotic therapy with levofloxacin. He should follow-up with his primary care physician in 7-10 days. (2) COPD exacerbation Is this a current diagnosis for this admission?: Yes Summary: Smoking cessation encouraged. He does have a nebulizer at home and he did give a prescription for DuoNeb on an as-needed basis. Will also be on a prednisone taper. Between exacerbations he has done well without scheduled inhaler therapy. He may be getting to the point where he would benefit from a combination inhaler such as Advair or Symbicort. (3) Systolic murmur Is this a current diagnosis for this admission?: Yes Summary: The patient did have an echocardiogram. It is a transthoracic but there was no evidence of vegetation. Ejection fraction is preserved. The patient has been afebrile. Only 1 bottle of 4 was positive on blood culture. This is likely contaminant. I explained all this to the patient. I told him that I felt with his current clinical picture endocarditis is extremely unlikely. He will be discharged on medications for pneumonia. (4) IV drug abuse Is this a current diagnosis for this admission?: Yes Summary: The patient was on Subutex at home. This indicates that he is in touch with some form of a treatment program. Continue with the same. - Additional Information Resuscitation Status: Full Code Discharge Diet: Regular Discharge Activity: Activity As Tolerated Prescriptions: Fluticasone Propionate [Flonase Nasal [place] 50 Mcg/Charlotte 16 gm] 2 spray NASL Q12 30 Days #1 spray.pump Ipratropium/Albuterol Sulfate [Duoneb 3 ml Ampul] 3 ml NEB Q6HP PRN #50 vial.neb PRN Reason: For Wheezing Levofloxacin [Levaquin 750 mg Tablet] 750 mg PO DAILY #5 tablet Prednisone [Deltasone 10 mg Tablet] 10 mg PO ASDIR PRN 12 Days #30 tablet PRN Reason: Home Medications: Albuterol Sulfate [Proair HFA Inhalation Aerosol 8.5 gm MDI] 1 puff IH Q4HP PRN 07/30/18 Albuterol Sulfate [Ventolin 0.083% Neb 2.5 mg/3 mL Ampul] 2.5 mg NEB RTQ4HP PRN 07/30/18 Buprenorphine HCl [Subutex 8 mg Sublingual Tablet] 8 mg PO 0800,1200 07/30/18 Ibuprofen [Motrin 800 mg Tablet] 800 mg PO Q8HP PRN 07/30/18 Naproxen [Naprosyn] 500 mg PO BID 07/30/18 Fluticasone Propionate [Flonase Nasal [place] 50 Mcg/[place] 16 gm] 2 spray NASL Q12 30 Days #1 spray.pump 08/01/18 Ipratropium/Albuterol Sulfate [Duoneb 3 ml Ampul] 3 ml NEB Q6HP PRN #50 vial.neb 08/01/18 Levofloxacin [Levaquin 750 mg Tablet] 750 mg PO DAILY #5 tablet 08/01/18 Prednisone [Deltasone 10 mg Tablet] 10 mg PO ASDIR PRN 12 Days #30 tablet 08/01/18 History of Present Illness Patient complains of: Shortness of breath History of Present Illness: KERON LIRIANO is a 43 year old male with a history of COPD, tobacco dependence and intravenous drug use. Over the 24 hours prior to admission he developed worsening shortness of breath with a nonproductive cough and bilateral wheezing. He was found to be hypoxic during the evaluation in the emergency department. He had a minimally elevated white blood cell count. He was given nebulizer treatments, supplemental oxygen, antibiotics and referred to the hospitalist service for admission. Hospital Course Hospital Course: See above as well. The patient actually exhibited a quick recovery. He has been off of oxygen and quite comfortable. His wheeze is almost completely resolved. He does not have a productive cough and is afebrile. Physical Exam Vital Signs: Temp Pulse Resp BP Pulse Ox 97.6 F 78 16 133/74 H 97 08/01/18 11:53 08/01/18 13:54 08/01/18 13:54 08/01/18 11:53 08/01/18 13:54 Pulse Oximeter Continuous Start: 07/30/18 05:34 Freq: RTQ4 Status: Complete Protocol: Document 07/30/18 12:00 [facility] (Rec: 07/30/18 12:01 [facility] [id number]) Pulse Oximetry Assessment Oxygen Saturation (92-100) 97 Oxygen Flow Rate (L/min) 2 Oxygen Delivery Method Nasal Cannula Equipment Usage Equipment Standby Continuous SpO2 Machine # -- Intake & Output 07/31/18 08/01/18 08/02/18 06:59 06:59 06:59 Intake Total 2550 2657 Output Total 1100 1750 Balance 1450 907 Weight 78.4 kg 78.4 kg General appearance: PRESENT: no acute distress, cooperative, well-developed Respiratory exam: PRESENT: symmetrical, unlabored, wheezes - Faint sporadic wheeze. ABSENT: rales, rhonchi Cardiovascular exam: PRESENT: RRR, +S1, +S2, systolic murmur - 2/6 GI/Abdominal exam: PRESENT: normal bowel sounds, soft. ABSENT: distended, tenderness Neurological exam: PRESENT: alert, awake, oriented to person, oriented to place, oriented to time, oriented to situation, CN II-XII grossly intact Psychiatric exam: PRESENT: appropriate affect, normal mood. ABSENT: agitated, anxious Focused psych exam: ABSENT: delusional, restlessness Results Laboratory Results: 07/31/18 04:22 07/31/18 04:22 Impressions: Chest X-Ray 07/30/18 03:31 IMPRESSION: No acute cardiopulmonary findings. Qualifiers - * PATIENT BEING DISCHARGED WITH ANY OF THE FOLLOWING DIAGNOSIS: No Plan Time Spent: Greater than 30 Minutes
== END 2018-08-01 16:19 | disposition home or self-care (01) | DRG 194 ==
LOC: ER 03:11 → EH 05:45 → 5 07:21 → OBSVTOIN 09:17
PROVIDERS: ADMIT Internal Medicine; ATTEND Internal Medicine
DX: J18.9 Pneumonia, unspecified organism (principal); J44.0 Chronic obstructive pulmonary disease with (acute) lower respiratory infection; J44.1 Chronic obstructive pulmonary disease with (acute) exacerbation; F11.10 Opioid abuse, uncomplicated; F12.90 Cannabis use, unspecified, uncomplicated; R01.1 Cardiac murmur, unspecified; Z79.899 Other long term (current) drug therapy; F17.200 Nicotine dependence, unspecified, uncomplicated
CPT/HCPCS: 36415; 71046; 71250; 80048; 80053; 80074; 80202; 82803; 82962; 85025; 86701; 87040; 87077; 87804; 93005; 93010; 93306; 94640; 94667; 94668; 94799; 96365; 96367; 96372; 96375; 99285; J1644; J1956; J2060; J2543; J2930; J3370; J3475; J3490; J7030; J7060; J7620

== ENCOUNTER 2019-07-20 18:35 | Emergency (ER) | payer BC, OTHER ==
[2019-07-20] MEDS ORDERED: IPRATROPIUM/ALBUTEROL 0.5-2.5 MG/3 ML AMPUL NEB ONE ×2 (19:26→21:06)
[2019-07-20] MEDS ORDERED: METHYLPREDNISOLONE INJ 125 MG/2 ML SDV IV ONE (19:26)
--- NOTE | 2019-07-20 19:28 | ER Document Report ---
ED Medical Screen (RME) - General Chief Complaint: Breathing Difficulty Stated Complaint: DIFFICULTY BREATHING Time Seen by Provider: 07/20/19 19:24 Mode of Arrival: Ambulatory Information source: Patient Notes: Patient presents complaint of difficulty breathing that started yesterday. Patient denies any chest pain. Patient does complain of upper back tenderness. No fever, no nausea or vomiting. Patient has a history of asthma and does state he is required intubation before due to exacerbations in the past. Patient with diffuse wheezing bilaterally. I have greeted and performed a rapid initial assessment of this patient. A comprehensive ED assessment and evaluation of the patient, analysis of test results and completion of the medical decision making process will be conducted by additional ED providers. TRAVEL OUTSIDE OF THE [place] IN LAST 30 DAYS: No - Related Data Allergies/Adverse Reactions: No Known Allergies Allergy (Verified 07/30/18 06:03) Past Medical History Pulmonary Medical History: Reports: Hx Asthma, Hx Bronchitis, Hx COPD Renal/ Medical History: Denies: Hx Peritoneal Dialysis Psychiatric Medical History: Reports: Hx Depression Past Surgical History: Reports: Hx Vascular Surgery - left carotid artery Physical Exam - Vital signs Vitals: Temp Pulse Resp BP Pulse Ox 98.3 F 80 22 H 142/90 H 95 07/20/19 19:03 07/20/19 19:03 07/20/19 19:03 07/20/19 19:03 07/20/19 19:03 - Respiratory Respiratory status: Tachypnea Breath sounds: Nonproductive cough, Wheezing - Diffuse wheezing bilaterally Course - Vital Signs Vital signs: Temp Pulse Resp BP Pulse Ox 98.3 F 80 22 H 142/90 H 95 07/20/19 19:03 07/20/19 19:03 07/20/19 19:03 07/20/19 19:03 07/20/19 19:03
--- NOTE | 2019-07-20 20:04 | RADIOLOGY REPORT (SQ) ---
EXAM DESCRIPTION: CHEST 2 VIEWS COMPLETED DATE/TIME: 07/20/2019 7:40 pm REASON FOR STUDY: diff breathing COMPARISON: Chest x-ray 07/30/2018, 06/05/2018. CT chest 07/30/2018. EXAM PARAMETERS: NUMBER OF VIEWS: two views TECHNIQUE: Digital Frontal and Lateral radiographic views of the chest acquired. RADIATION DOSE: NA LIMITATIONS: none FINDINGS: LUNGS AND PLEURA: No consolidation, pneumothorax or pleural effusion. MEDIASTINUM AND HILAR STRUCTURES: No masses or contour abnormalities. HEART AND VASCULAR STRUCTURES: Heart normal size. No evidence for failure. BONES: No acute findings. HARDWARE: None in the chest. IMPRESSION: NO ACUTE RADIOGRAPHIC FINDING IN THE CHEST. TECHNICAL DOCUMENTATION: JOB ID: [id number] [employer]- All Rights Reserved Reading location - IP/workstation name: [email or web address]
[2019-07-20 20:09] LABS: HEMATOCRIT 44.5 % (37.9-51.0); HEMOGLOBIN 15.3 g/dL (13.5-17.0); MEAN CORPUSCULAR HEMOGLOBIN 27.9 pg (27.0-33.4); MEAN CORPUSCULAR HGB CONC 34.4 g/dL (32.0-36.0); MEAN CORPUSCULAR VOLUME 81 fl (80-97); RED BLOOD COUNT 5.49 10^6/uL (4.35-5.55); RED CELL DISTRIBUTION WIDTH 12.6 % (11.5-14.0); WHITE BLOOD COUNT 6.7 10^3/uL (4.0-10.5)
[2019-07-20] MEDS: ALBUTEROL SULFATE 0.083% NEB 2.5 MG/3 ML AMPUL NEB SCH ×2 (20:20→20:40)
[2019-07-20 20:24] LABS: ALBUMIN 4.4 g/dL (3.5-5.0); ALKALINE PHOSPHATASE 70 U/L (38-126); ANION GAP 8 (5-19); ASPARTATE AMINO TRANSFERASE 26 U/L (17-59); BILIRUBIN,TOTAL 0.4 mg/dL (0.2-1.3); BLOOD UREA NITROGEN 10 mg/dL (7-20); CALCIUM 9.4 mg/dL (8.4-10.2); CARBON DIOXIDE 30 mmol/L (22-30); CHLORIDE 97 mmol/L (98-107); GLUCOSE 104 mg/dL (75-110); POTASSIUM 5.3 mmol/L (3.6-5.0); TOTAL PROTEIN 7.4 g/dL (6.3-8.2)
[2019-07-20 20:29] LABS: ABSOLUTE LYMPHOCYTES# (MANUAL) 0.4 10^3/uL (0.5-4.7); ABSOLUTE MONOCYTES # (MANUAL) 0.5 10^3/uL (0.1-1.4); BAND NEUTROPHILS % (MANUAL) 4 % (3-5); BASOPHILS % (MANUAL) 0 % (0-2); EOSINOPHILS % (MANUAL) 0 % (0-6); LYMPHOCYTES % (MANUAL) 6 % (13-45); MONOCYTES % (MANUAL) 7 % (3-13); RBC MORPHOLOGY COMMENT NORMO-CYTIC/CHROMIC; SEGMENTED NEUTROPHILS % (MAN) 83 % (42-78); TOTAL CELLS COUNTED 100
[2019-07-20 20:30] LABS: PLATELET COMMENT ADEQUATE; PLATELET COUNT 207 10^3/uL (150-450)
[2019-07-20] MEDS ORDERED: NORMAL SALINE 1000 ML 1,000 ML IV ONE (21:05)
[2019-07-20] MEDS: MAGNESIUM SULFATE/D5W 1 GM/100 ML RTUPB IV SCH ×2 (21:25→23:00)
[2019-07-20 21:50] LABS: A TYPE INFLUENZA AG POSITIVE (NEGATIVE); B INFLUENZA AG NEGATIVE (NEGATIVE)
--- NOTE | 2019-07-20 22:38 | ER Document Report ---
Entered by KATHE CALDERON SCRIBE 07/20/192058 Acting as scribe for:ELVA MCGUIRE IV, MD ED General - General Chief Complaint: Breathing Difficulty Stated Complaint: DIFFICULTY BREATHING Time Seen by Provider: 07/20/19 19:24 Mode of Arrival: Ambulatory Information source: Patient Notes: This 43 year old male patient with a history of asthma and COPD presents to the ED today with complaints of dyspnea that began x1 day ago. Patient states that he has an albuterol inhaler/nebulizer and Advair that he uses qd and used prior to arrival with no relief. Patient reports upper back pain, but denies nausea, vomiting, fever, or chest pain. Patient notes that he has required intubation for exacerbation in the past. TRAVEL OUTSIDE OF THE [place] IN LAST 30 DAYS: No - Related Data Allergies/Adverse Reactions: No Known Allergies Allergy (Verified 07/30/18 06:03) Home Medications: albuterol inhaler and nebulizer Past Medical History - General Information source: Patient - Social History Smoking Status: Former Smoker Cigarette use (# per day): No Chew tobacco use (# tins/day): No Smoking Education Provided: No Frequency of alcohol use: None Drug Abuse: None Family History: Reviewed & Not Pertinent, COPD Patient has suicidal ideation: No Patient has homicidal ideation: No Pulmonary Medical History: Reports: Hx Asthma, Hx Bronchitis, Hx COPD Psychiatric Medical History: Reports: Hx Depression Past Surgical History: Reports: Hx Vascular Surgery - left carotid artery Review of Systems - Review of Systems Constitutional: See HPI. denies: Fever EENT: No symptoms reported Cardiovascular: See HPI, Dyspnea. denies: Chest pain Respiratory: No symptoms reported Gastrointestinal: See HPI. denies: Nausea, Vomiting Genitourinary: No symptoms reported Male Genitourinary: No symptoms reported Musculoskeletal: See HPI, Back pain Skin: No symptoms reported Hematologic/Lymphatic: No symptoms reported Neurological/Psychological: No symptoms reported -: Yes All other systems reviewed and negative Physical Exam - Vital signs Vitals: Temp Pulse Resp BP Pulse Ox 98.3 F 80 22 H 142/90 H 95 07/20/19 19:03 07/20/19 19:03 07/20/19 19:03 07/20/19 19:03 07/20/19 19:03 - General General appearance: Alert - HEENT Head: Normocephalic, Atraumatic Eyes: Normal Pupils: PERRL - Respiratory Respiratory status: No respiratory distress Chest status: Nontender Breath sounds: Wheezing - Expiratory, Other - Slightly diminished breath sounds. Fair air movement in all 4 lung quadrants. Chest palpation: Normal - Cardiovascular Rhythm: Regular Heart sounds: Normal auscultation Murmur: No - Abdominal Inspection: Normal Distension: No distension Bowel sounds: Normal Tenderness: Nontender Organomegaly: No organomegaly - Back Back: Normal, Nontender - Extremities General upper extremity: Normal inspection General lower extremity: Normal inspection - Neurological Neuro grossly intact: Yes - Psychological Associated symptoms: Normal affect, Normal mood - Skin Skin Temperature: Warm Skin Moisture: Dry Skin Color: Normal Course - Re-evaluation Re-evalutation: 07/20/19 23:09 Patient states he is feeling better this time. Patient states he has plenty of Advair and has rescue inhaler at home. Patient states he does not have health insurance to help him afford the cost of medications like Tamiflu. Patient states he could afford a prednisone taper but would like to do a prolonged taper because he tends to do better with this. All questions were answered prior to discharge. Emergency signs and symptoms, reasons to return to the ED discussed with the patient. - Vital Signs Vital signs: Temp Pulse Resp BP Pulse Ox 99.0 F 81 12 142/89 H 98 07/20/19 21:20 07/20/19 20:15 07/20/19 20:15 07/20/19 20:15 07/20/19 20:15 - Laboratory Result Diagrams: 07/20/19 19:49 07/20/19 19:49 Laboratory results interpreted by me: 07/20/19 07/20/19 19:49 19:49 Seg Neuts % (Manual) 83 H Lymphocytes % (Manual) 6 L Abs Lymphs (Manual) 0.4 L Sodium 135.3 L Potassium 5.3 H Chloride 97 L - Diagnostic Test Radiology reviewed: Reports reviewed Discharge - Discharge Clinical Impression: Influenza A Condition: Good Disposition: HOME, SELF-CARE Instructions: Influenza ([facility]) [id number] Additional Instructions: Return to the Emergency Department without delay if any worse. HOME CARE INSTRUCTIONS & INFORMATION: Thank you for choosing us for your medical needs. We hope you're satisfied with the care you received. After you leave, you must properly care for your problem and, at the same time, observe its progress. Any condition can change. Some illnesses can change rapidly over hours or days. If your condition worsens, return to the Emergency Department or see your physician promptly. ABOUT YOUR X-RAYS AND EKG'S: If you had an EKG or X-rays taken, they have been read by the Emergency Physician. The X-rays and EKG's will also be read by a Radiologist or Academic Coordinator within 24 hours. If discrepancies are noted, you will be notified by telephone. Please be certain the ED has a correct telephone number & address where you can be reached. Also, realize that some fractures or abnormalities do not show up on initial X-rays. If your symptoms continue, see your physician. ABOUT YOUR LABORATORY TEST: If you had laboratory tests, the results have been reviewed by the Emergency Physician. Some test results (for example cultures) may not be available for several days. You will be contacted if any test result shows you need additional treatment. Please be certain the ED has a correct telephone number and address where you can be reached. ABOUT YOUR MEDICATIONS: You will receive instructions on how to take your medicine on the prescription label you receive. Additional information may be provided by the Pharmacy. If you have questions afterwards, call the ED for clarification or further instructions. Some prescribed medications may cause drowsiness. Do not perform tasks such as driving a car or operating machinery without consulting your Pharmacist. If you feel you need a refill of pain medication, your condition will need re-evaluation. Please do not call for a refill of any medication. ABOUT YOUR SIGNATURE: Signature of this document acknowledges to followin. Understanding that you received emergency treatment and that you may be released before al medical problems are known or treated. Please be certain the ED has a correct phone number & address where you can be reached. 2. Acknowledgement that you will arrange for follow-up care as recommended. 3. Authorization for the Emergency Physician to provide information to your follow-up Physician in order to maximize your care. AT ANY TIME, IF YOUR SYMPTOMS CHANGE SIGNIFICANTLY OR WORSEN OR YOU DEVELOP NEW SYMPTOMS, RETURN TO THE EMERGENCY DEPARTMENT IMMEDIATELY FOR RE-EVALUATION. OUR GOAL IS TO PROVIDE EXCELLENT MEDICAL CARE! WE HOPE THAT WE HAVE MET YOUR EXPECTATIONS DURING YOUR EMERGENCY DEPARTMENT VISIT AND THAT YOU FEEL YOU HAVE RECEIVED EXCELLENT CARE! Prescriptions: Prednisone 10 mg PO DAILY 15 Days #55 tablet Referrals: DAVID WONG MD [HONORARY] - 07/22/19 I personally performed the services described in the documentation, reviewed and edited the documentation which was dictated to the scribe in my presence, and it accurately records my words and actions.
[2019-07-20 23:36] VITALS: BP 125/71
== END 2019-07-20 23:36 | disposition home or self-care (01) ==
LOC: ER 18:35
DX: J10.1 Influenza due to other identified influenza virus with other respiratory manifestations (principal); R06.00 Dyspnea, unspecified; M54.6 Pain in thoracic spine; J44.9 Chronic obstructive pulmonary disease, unspecified; Z87.891 Personal history of nicotine dependence
CPT/HCPCS: 36415; 85025; 80053; 87804; 71046; J2930; J3475; J7030; J7620; 94640; 96361; 96365; 96375; 99285

== ENCOUNTER 2019-08-28 10:18 | Emergency (ER) | payer BC, OTHER ==
[2019-08-28] MEDS ORDERED: LIDOCAINE 5% (700 MG) TRANSDERMAL ADH..PATCH TP ONE (10:27)
[2019-08-28] MEDS ORDERED: KETOROLAC TROMETHAMINE 60 MG/2 ML SDV IM ONE (10:27)
[2019-08-28] MEDS ORDERED: CYCLOBENZAPRINE HCL 10 MG TABLET PO ONE (10:27)
--- NOTE | 2019-08-28 10:29 | ER Document Report ---
ED Medical Screen (RME) - General Chief Complaint: Back Pain Stated Complaint: BACK PAIN Time Seen by Provider: 08/28/19 10:23 Mode of Arrival: Wheelchair Information source: Patient Notes: Patient is a 44-year-old male presenting to the emergency department chief complaint of low back pain and right lower extremity pain. Patient reports pain near the sacral area that radiates down into his leg. He also reports associated right leg swelling. He does report urinary incontinence but states this is because he is in too much pain to make it to the bathroom on time. He denies any injury. He does have some swelling to his right lower extremity around the foot and ankle area, he is wearing jeans so I am unable to get a good evaluation on the rest of his leg. I have greeted and performed a rapid initial assessment of this patient. A comprehensive ED assessment and evaluation of the patient, analysis of test results and completion of the medical decision making process will be conducted by additional ED providers. I have specifically instructed the patient or family members with the patient to immediately return to any nursing staff should anything change in the patient's condition or with their chief complaint. TRAVEL OUTSIDE OF THE [place] IN LAST 30 DAYS: No - Related Data Allergies/Adverse Reactions: No Known Allergies Allergy (Verified 08/28/19 10:22) Past Medical History Pulmonary Medical History: Reports: Hx Asthma, Hx Bronchitis, Hx COPD Renal/ Medical History: Denies: Hx Peritoneal Dialysis Psychiatric Medical History: Reports: Hx Depression Past Surgical History: Reports: Hx Vascular Surgery - left carotid artery Physical Exam - Vital signs Vitals: Temp Pulse Resp BP Pulse Ox 99.4 F 92 18 119/76 98 08/28/19 10:21 08/28/19 10:21 08/28/19 10:21 08/28/19 10:08/28/19 10:21 Course - Vital Signs Vital signs: Temp Pulse Resp BP Pulse Ox 99.4 F 92 18 119/76 98 08/28/19 10:21 08/28/19 10:21 08/28/19 10:21 08/28/19 10:21 08/28/19 10:21
--- NOTE | 2019-08-28 12:45 | RADIOLOGY REPORT (SQ) ---
EXAM DESCRIPTION: VENOUS UNILATERAL LOWER COMPLETED DATE/TIME: 08/28/2019 12:32 pm REASON FOR STUDY: RLE pain/swelling COMPARISON: None. TECHNIQUE: Dynamic and static weston scale and color images acquired of the right leg venous system. S elected spectral images acquired with additional compression and augmentation maneuvers. The contrala teral common femoral vein and saphenofemoral junction were also imaged. Images stored on PACS. LIMITATIONS: None. FINDINGS: COMMON FEMORAL: Normal phasicity, compression and augmentation. No visualized echogenic ma terial on weston scale. No defects on color images. FEMORAL: Normal compression and augmentation. No visualized echogenic material on weston scale. No defe cts on color images. POPLITEAL: Normal compression, augmentation. No visualized echogenic material on weston scale. No defec ts on color images. CALF VESSELS: Normal compression, augmentation. No visualized echogenic material on weston scale. No de fects on color images. GSV and SSV: Normal compression, augmentation. No visualized echogenic material on weston scale. No def ects on color images. ANY DEEP VENOUS INSUFFICIENCY: Not evaluated. ANY EVIDENCE OF POPLITEAL CYST: No. OTHER: No other significant finding. CONTRALATERAL COMMON FEMORAL VEIN AND SAPHENOFEMORAL JUNCTION: Normal phasicity, compression and augmentation. No visualized echogenic material on weston scale. No de fects on color images. IMPRESSION: NO EVIDENCE OF DVT OR SVT IN THE RIGHT LEG. TECHNICAL DOCUMENTATION: JOB ID: [id number] 2010 [employer]- All Rights Reserved Reading location - IP/workstation name: [email or web address]
--- NOTE | 2019-08-28 13:23 | ER Document Report ---
ED Neck/Back Problem - General Chief Complaint: Low Back Pain Stated Complaint: BACK PAIN Time Seen by Provider: 08/28/19 10:23 Primary Care Provider: [facility] [Provider Group] - Follow up as needed Mode of Arrival: Wheelchair Notes: Patient is a 44-year-old male who presents to the emergency department with a chief complaint of a right hip pain. Patient states that he has never felt this before. States that it is a sharp pain and it has taken him a long time to get out of bed. Patient also notes that he has some swelling to bilateral legs TRAVEL OUTSIDE OF THE [place] IN LAST 30 DAYS: No - Related Data Allergies/Adverse Reactions: No Known Allergies Allergy (Verified 08/28/19 10:22) Past Medical History - General Information source: Patient - Social History Smoking Status: Former Smoker Chew tobacco use (# tins/day): Yes Frequency of alcohol use: None Drug Abuse: Marijuana Family History: Reviewed & Not Pertinent, COPD Patient has suicidal ideation: No Patient has homicidal ideation: No Pulmonary Medical History: Reports: Hx Asthma, Hx Bronchitis, Hx COPD Renal/ Medical History: Denies: Hx Peritoneal Dialysis Psychiatric Medical History: Reports: Hx Depression Past Surgical History: Reports: Hx Vascular Surgery - left carotid artery Review of Systems - Review of Systems Notes: REVIEW OF SYSTEMS: CONSTITUTIONAL : Denies recent illness. Denies recent unintentional weight loss. Denies fever, chills, or sweats. EENT: Denies eye, ear, throat, or mouth pain, discharge, or symptoms. Denies nasal or sinus congestion. CARDIOVASCULAR: Denies chest pain. RESPIRATORY: Denies shortness of breath, cough, congestion, difficulty breathing, or wheezing. GASTROINTESTINAL: Denies nausea, vomiting, and diarrhea. Denies abdominal pain. Denies constipation. GENITOURINARY: Denies difficulty urinating, burning, blood in urine, urgency or frequency. MUSCULOSKELETAL: See HPI. Denies joint pain or swelling. SKIN: Denies rash, itchiness, or lesions HEMATOLOGIC : Denies easy bruising or bleeding. LYMPHATIC: Denies swollen, painful, enlarged glands. NEUROLOGICAL: Denies no numbness or tingling denies weakness. Denies headache. Denies altered mental status. Denies alteration in speech. PSYCHIATRIC: Denies stress, anxiety, alteration in sleep patterns, or depression. All other systems reviewed and negative. Physical Exam - Vital signs Vitals: Temp Pulse Resp BP Pulse Ox 99.4 F 92 18 119/76 98 08/28/19 10:21 08/28/19 10:21 08/28/19 10:21 08/28/19 10:21 08/28/19 10:21 - Notes Notes: PHYSICAL EXAMINATION: GENERAL: Appears well, healthy, well-nourished, no acute distress. HEAD: Normocephalic, atraumatic. EYES: PERRL, conjunctiva normal, all extraocular movements intact, sclera nonicteric ENT: Moist mucous membranes. NECK: Supple, no noticeable swelling, redness, rash. Normal range of motion. LUNGS: Equal breath sounds bilaterally and clear to auscultation. No wheezes rales or rhonchi. CARDIOVASCULAR: S1-S2, regular rate, regular rhythm. Radial pulses 2+, normal. ABDOMEN: Normoactive bowel sounds. Soft, nontender, no guarding, no rebound tenderness, and no masses palpated. EXTREMITIES: Tenderness noted to the right buttock area. Decreased range of motion to the right lower extremity NEUROLOGICAL: Moves all extremities upon command. Strength 3 out of 5 in right lower extremity. Strength 5/5 in all other extremities. PSYCH: Normal mood, normal affect. SKIN: Warm, dry. No rash, lesions, ulcerations noted. Normal skin turgor. Course - Re-evaluation Re-evalutation: 08/28/19 15:[address] of the lumbar spine shows L3 and L4 mild stenosis with bulging disks. No epidural abscess noted on CT. I suspect patient's pain is due to sciatic nerve pain. He will be started on prednisone and follow-up with [facility] as per surgery if he does not have improvement of his pain. Follow-up pr ecautions were given. Verbal discharge instructions were given to the patient. They verbalized understanding. They are stable for discharge. - Vital Signs Vital signs: Temp Pulse Resp BP Pulse Ox 97.9 F 102 H 20 124/78 98 08/28/19 15:54 08/28/19 15:54 08/28/19 15:54 08/28/19 15:54 08/28/19 15:54 Discharge - Discharge Clinical Impression: Right sciatic nerve pain, Right leg pain Condition: Stable Disposition: HOME, SELF-CARE Additional Instructions: He was seen today in the emergency department for right leg pain. Your pain is consistent with sciatic nerve pain. Please follow-up with [facility] for surgery if needed. I highly suggest she buy a foam roller and look up foam roller exercises for sciatic nerve pain. You are also being sent home with Robaxin, muscle relaxer. Take these as needed. Prescriptions: Prednisone [Deltasone 20 mg Tablet] 3 tab PO DAILY 5 Days #15 tablet Lidocaine [Lidoderm 5% (700 mg) Transdermal Patch] 1 patch TP DAILY #7 adh..patch Methocarbamol [Robaxin 500 mg Tablet] 500 mg PO QID PRN #20 tablet PRN Reason: Forms: Return to Work Referrals: [facility] [Provider Group] - Follow up as needed
--- NOTE | 2019-08-28 14:17 | RADIOLOGY REPORT (SQ) ---
EXAM DESCRIPTION: CT LUMBAR SPINE WITHOUT COMPLETED DATE/TIME: 08/28/2019 1:38 pm REASON FOR STUDY: hip pain; hx of IVDA COMPARISON: None. TECHNIQUE: Axial images acquired through the lumbar spine without intravenous contrast. Images revi ewed with lung, soft tissue and bone windows. Reconstructed coronal and sagittal MPR images reviewed . All images stored on PACS. All CT scanners at this facility use dose modulation, iterative reconstruction, and/or weight based d osing when appropriate to reduce radiation dose to as low as reasonably achievable (ALARA). [facility]: Dose Right [facility]: CareDose [facility]: Dose Right [facility]: Teradose 4D [facility]: [email or web address] RADIATION DOSE: mGy. LIMITATIONS: None. FINDINGS: SEGMENTATION: Normal. No transitional anatomy. ALIGNMENT: Straightening of the normal lumbar lordosis, likely positional. VERTEBRAL BODIES: No fractures. No dislocation. No acute findings. DISCS: No significant disc height loss. Mild broad-based posterior discs at L3-4 and L4-5 with mild canal stenosis and lateral recess narrowing. There is mild bilateral neural foraminal narrowing asso ciated at those levels secondary to disc bulge. No high-grade osseous neural foraminal narrowing. PEDICLES, TRANSVERSE PROCESSES: No fractures. No dislocation. No acute findings. FACETS, POSTERIOR ELEMENTS: No fracture dislocation. HARDWARE: None in the spine. VISUALIZED RIBS: No fractures. SOFT TISSUES: No significant or acute finding in adjacent soft tissues. OTHER: No other significant finding. IMPRESSION: No evidence of acute bony abnormality of the lumbar spine. No evidence of high-grade spinal canal stenosis or neural foraminal narrowing on this noncontrast exa m. TECHNICAL DOCUMENTATION: JOB ID: [id number] Quality ID # [id number]: Final reports with documentation of one or more dose reduction techniques (e.g., Au tomated exposure control, adjustment of the mA and/or kV according to patient size, use of iterative reconstruction technique) 2010 [employer]- All Rights Reserved Reading location - IP/workstation name: [email or web address]
[2019-08-28 15:56] VITALS: BP 124/78
== END 2019-08-28 16:01 | disposition home or self-care (01) ==
LOC: ER 10:18
DX: M51.16 Intervertebral disc disorders with radiculopathy, lumbar region (principal); M48.061 Spinal stenosis, lumbar region without neurogenic claudication; J44.9 Chronic obstructive pulmonary disease, unspecified; Z72.0 Tobacco use
CPT/HCPCS: 99283; 96372; 93971; 72131; J1885

== ENCOUNTER 2019-09-28 03:00 | Inpatient (IN) | payer BC, OTHER ==
[2019-09-28] MEDS ORDERED: LORAZEPAM INJ 2 MG/1 ML VIAL IV ONE (03:11)
[2019-09-28] MEDS ORDERED: MIDAZOLAM HCL 50 MG/100 ML RTUINJ IV PRN (03:16)
[2019-09-28] MEDS ORDERED: PROPOFOL INJ 200 MG/20 ML VIAL IV ONE (03:19)
[2019-09-28] MEDS ORDERED: PROPOFOL 1,000 MG/100 ML INFUS..BTL IV PRN (03:21)
[2019-09-28 03:32] LABS: ARTERIAL BLOOD BASE EXCESS -12.4 mmol/L; ARTERIAL BLOOD H2CO3 3.53 mmol/L (1.05-1.35); ARTERIAL BLOOD O2 SATURATION 95.1 % (94-98); ARTERIAL BLOOD PCO2 117.4 mmHg (35-45); ARTERIAL BLOOD PO2 124.4 mmHg (80-100); ARTERIAL BLOOD TOTAL CO2 26.6 mmol/L (23-27)
[2019-09-28 03:33] LABS: ARTERIAL BLOOD FIO2 60%
[2019-09-28 03:35] LABS: ARTERIAL BLOOD PH 6.91 (7.35-7.45)
[2019-09-28] MEDS ORDERED: SODIUM BICARBONATE 8.4% INJ 50 MEQ/50 ML DISP.SYRIN IV ONE (03:36)
[2019-09-28] MEDS ORDERED: NORMAL SALINE IV ONE (03:38)
[2019-09-28 03:40] LABS: INTERNATIONAL RATION (INR) 1.13; PROTHROMBIN TIME 14.6 SEC (11.4-15.4)
[2019-09-28 03:51] LABS: ALBUMIN 3.9 g/dL (3.5-5.0); ALKALINE PHOSPHATASE 73 U/L (38-126); ANION GAP 11 (5-19); ASPARTATE AMINO TRANSFERASE 30 U/L (17-59); BILIRUBIN,TOTAL 0.3 mg/dL (0.2-1.3); BLOOD UREA NITROGEN 9 mg/dL (7-20); CARBON DIOXIDE 23 mmol/L (22-30); CHLORIDE 105 mmol/L (98-107); GLUCOSE 330 mg/dL (75-110); POTASSIUM 5.5 mmol/L (3.6-5.0); TOTAL PROTEIN 6.6 g/dL (6.3-8.2)
[2019-09-28] MEDS ORDERED: VECURONIUM BROMIDE INJ 10 MG VIAL IV ONE ×2 (03:51→10:55)
--- NOTE | 2019-09-28 03:56 | RADIOLOGY REPORT (SQ) ---
EXAM DESCRIPTION: XR CHEST 1 VIEW COMPLETED DATE/TME: 09/28/2019 03:14 CLINICAL HISTORY: 44 years, Male, s/p intubation COMPARISON: 06/05/2018 chest NUMBER OF VIEWS: 1 TECHNIQUE: Portable chest LIMITATIONS: None. FINDINGS: The heart size is normal. Enteric tube extends into the left upper quadrant. Endotracheal tube is approximately 7.9 cm above the jose. No pneumothorax. Lungs are clear IMPRESSION: Endotracheal and enteric tubes in place. Lungs are clear copyright 2011 [employer]- All Rights Reserved
[2019-09-28] MEDS ORDERED: SUCCINYLCHOLINE CHLORIDE INJ 200 MG/10 ML VIAL IV ONE (03:57)
[2019-09-28] MEDS ORDERED: ETOMIDATE INJ/PF 20 MG/10 ML SDV IV ONE ×2 (03:57→10:55)
[2019-09-28 04:01] LABS: ALCOHOL < 10 mg/dL (NONE DETECTED); HEMOGLOBIN 13.8 g/dL (13.5-17.0); MEAN CORPUSCULAR HEMOGLOBIN 27.9 pg (27.0-33.4); MEAN CORPUSCULAR HGB CONC 32.8 g/dL (32.0-36.0); MEAN CORPUSCULAR VOLUME 85 fl (80-97); PLATELET COUNT 521 10^3/uL (150-450); RED BLOOD COUNT 4.94 10^6/uL (4.35-5.55); RED CELL DISTRIBUTION WIDTH 13.3 % (11.5-14.0); WHITE BLOOD COUNT 22.6 10^3/uL (4.0-10.5)
[2019-09-28 04:02] LABS: NT PRO BNP 72 pg/mL (<125)
[2019-09-28 04:04] LABS: TROPONIN I < 0.012 ng/mL
[2019-09-28 04:06] LABS: ABSOLUTE LYMPHOCYTES# (MANUAL) 9.7 10^3/uL (0.5-4.7); BAND NEUTROPHILS % (MANUAL) 1 % (3-5); BASOPHILS % (MANUAL) 1 % (0-2); EOSINOPHILS % (MANUAL) 7 % (0-6); LYMPHOCYTES % (MANUAL) 41 % (13-45); MONOCYTES % (MANUAL) 9 % (3-13); SEGMENTED NEUTROPHILS % (MAN) 39 % (42-78); TOTAL CELLS COUNTED 100
[2019-09-28 04:07] LABS: PLATELET CLUMPS PRESENT; PLATELET COMMENT INCREASED; RBC MORPHOLOGY COMMENT NORMO-CYTIC/CHROMIC; TOXIC VACUOLATION PRESENT
[2019-09-28 04:19] LABS: APPEARANCE,URINE SLIGHTLY-CLOUDY; BILIRUBIN,URINE NEGATIVE (NEGATIVE); COLOR,URINE YELLOW; GLUCOSE, URINE >=500 mg/dL (NEGATIVE); KETONES,URINE NEGATIVE (NEGATIVE); PROTEIN,URINE 100 mg/dL (NEGATIVE); URINE SPECIFIC GRAVITY 1.013; UROBILINOGEN,URINE NEGATIVE mg/dL (<2.0)
[2019-09-28] MEDS ORDERED: VANCOMYCIN HCL INJ 1000 MG VIAL IV ONE (04:27)
[2019-09-28] MEDS ORDERED: PIPERACILLIN/TAZOBACTAM 3.375 GM VIAL IV ONE (04:28)
--- NOTE | 2019-09-28 04:30 | ER Document Report ---
Entered by KATHE CALDERON SCRIBE 09/28/19 0322 Acting as scribe for:ELVA MCGUIRE IV, MD ED Respiratory Problem - General Chief Complaint: Respiratory Distress Stated Complaint: TROUBLE BREATHING Mode of Arrival: Medic Information source: Emergency Med Personnel Notes: This 44 year old male patient with a history of IV drug abuse, asthma, COPD, and bronchitis brought in by EMS presents to the ED today with complaints of dyspnea that occurred just prior to arrival. EMS reports that upon their arrival, the patient appeared hunched over on the front porch with difficulty breathing, dil ated pupils, and several track khalil on his upper extremities. EMS states that the patient was 87% O2 on CPAP and that they administered 2 mg Narcan IN, x2 A&A treatments, 125 mg Solumedrol IV, and IV Magnesium en route. Patient responded to their voices by making noises, but did not use actual words. EMS reports that the family at the scene were poor historians and only reported a history of asth ma. TRAVEL OUTSIDE OF THE [place] IN LAST 30 DAYS: No - Related Data Allergies/Adverse Reactions: No Known Allergies Allergy (Verified 09/28/19 04:30) Past Medical History - Social History Smoking Status: Unknown if Ever Smoked Cigarette use (# per day): No Chew tobacco use (# tins/day): No Smoking Education Provided: No Lives with: Family Family History: Reviewed & Not Pertinent, COPD Patient has suicidal ideation: No Patient has homicidal ideation: No Pulmonary Medical History: Reports: Hx Asthma, Hx Bronchitis, Hx COPD Psychiatric Medical History: Reports: Hx Depression Past Surgical History: Reports: Hx Vascular Surgery - left carotid artery Review of Systems - Review of Systems -: Yes ROS unobtainable due to patient's medical condition Physical Exam - Vital signs Vitals: Resp Pulse Ox 18 83 L 09/28/19 03:02 09/28/19 03:02 - General General appearance: Lethargic - Extremely - HEENT Head: Normocephalic, Atraumatic Eyes: Normal Pupils: PERRL - Respiratory Respiratory status: Respiratory distress Chest status: Nontender Breath sounds: Decreased air movement - Diminished breath sounds bilaterally. Poor air movement Chest palpation: Normal - Cardiovascular Rhythm: Regular, Tachycardia Heart sounds: Normal auscultation Murmur: No Friction rub: No Gallop: None auscultated - Abdominal Inspection: Normal Distension: No distension Bowel sounds: Normal Tenderness: Nontender - Abdomen soft Organomegaly: No organomegaly - Back Back: Normal, Nontender - Extremities General upper extremity: Normal inspection General lower extremity: Normal inspection - Neurological Neuro grossly intact: Yes - Psychological Associated symptoms: Other - Lethargic - Skin Skin Temperature: Warm Skin Moisture: Dry Skin Color: Normal Course - Vital Signs Vital signs: Temp Pulse Resp BP Pulse Ox 73 17 134/104 H 100 09/28/19 03:03 09/28/19 05:01 09/28/19 05:01 09/28/19 05:01 - Laboratory Result Diagrams: 09/28/19 03:15 09/28/19 03:15 Laboratory results interpreted by me: 09/28/19 09/28/19 09/28/19 03:15 03:15 03:15 WBC 22.6 H Plt Count 521 H Seg Neuts % (Manual) 39 L Band Neutrophils % 1 L Eosinophils % (Manual) 7 H Abs Neuts (Manual) 9.0 H Abs Lymphs (Manual) 9.7 H Abs Monocytes (Manual) 2.0 H Absolute Eos (Manual) 1.6 H Carbonic Acid ABG pH ABG pCO2 ABG pO2 Potassium 5.5 H Glucose 330 H POC Glucose Lactic Acid 5.1 H Urine Protein Urine Glucose (UA) Urine Blood Leukocyte Esterase Rfl Urine Ascorbic Acid 09/28/19 09/28/19 09/28/19 03:15 03:36 03:49 WBC Plt Count Seg Neuts % (Manual) Band Neutrophils % Eosinophils % (Manual) Abs Neuts (Manual) Abs Lymphs (Manual) Abs Monocytes (Manual) Absolute Eos (Manual) Carbonic Acid 3.53 H ABG pH 6.91 L* ABG pCO2 117.4 H* ABG pO2 124.4 H Potassium Glucose POC Glucose 338 H Lactic Acid Urine Protein 100 H Urine Glucose (UA) >=500 H Urine Blood SMALL H Leukocyte Esterase Rfl TRACE H Urine Ascorbic Acid 20 H - Consults daniel escoto np, title vehicle service attendant Time consulted: 05:28 Reason for consultation: 09/28/19 05:28 acute respiratory failure, intubated Consulted provider: will come to ER Procedures - Intubation Orotracheal Time of Intubation: 03:09 Mallampati Classification: Class 3 Medications: Etomidate, Succinylcholine Intubation method: Orotracheal Blade type: Becerra Blade size: 4 Equipment used: Glidescope ETT size: 7.5 ETT secured at: Gums ETT secured at (cm): 23 Breath Sounds after Intubation: Equal End tidal CO2 confirmed: Yes Post Intubation Xray: Yes - RT instructed to advance ETT 2 cm Intubation Complications: O2 saturation decreased - O2 saturations dropped into the 40s transiently but increased to 90s with vigorous [id number] ventilation Critical Care Note - Critical Care Note Total time excluding time spent on procedures (mins): 120 Discharge - Discharge Clinical Impression: Acute respiratory failure Qualifiers: Respiratory failure complication: hypoxia and hypercapnia Qualified Code(s): J 96.01 - Acute respiratory failure with hypoxia; J96.02 - Acute respiratory failure with hypercapnia Condition: Critical Disposition: ADMITTED INPATIENT Admitting Provider: Martir (Library Associate) Unit Admitted: ICU I personally performed the services described in the documentation, reviewed and edited the documentation which was dictated to the scribe in my presence, and it accurately records my words and actions.
[2019-09-28 04:31] LABS: URINE AMPHETAMINES SCREEN NEGATIVE; URINE BARBITURATES SCREEN NEGATIVE; URINE BENZODIAZEPINES SCREEN NEGATIVE; URINE COCAINE SCREEN NEGATIVE; URINE MARIJUANA (THC) SCREEN UNCONFIRMED POSITIVE; URINE METHADONE SCREEN NEGATIVE; URINE PHENCYCLIDINE SCREEN NEGATIVE
[2019-09-28 05:20] LABS: ARTERIAL BLOOD BASE EXCESS -6.6 mmol/L; ARTERIAL BLOOD H2CO3 2.46 mmol/L (1.05-1.35); ARTERIAL BLOOD HCO3 24.9 mmol/L (20-24); ARTERIAL BLOOD O2 SATURATION 67.6 % (94-98); ARTERIAL BLOOD PCO2 81.8 mmHg (35-45); ARTERIAL BLOOD PO2 48.1 mmHg (80-100); ARTERIAL BLOOD TOTAL CO2 27.4 mmol/L (23-27)
[2019-09-28] MEDS ORDERED: DEXTROSE 50%-WATER 25 GM/50 ML DISP.SYRIN IV PRN ×2 (05:27)
[2019-09-28] MEDS ORDERED: DEXTROSE 40% GEL 15 GM TUBE PO PRN ×2 (05:27)
[2019-09-28] MEDS ORDERED: GLUCAGON,HUMAN RECOMB 1 MG INJ IM PRN (05:27)
[2019-09-28] MEDS ORDERED: HYDROMORPHONE HCL INJ/PF 2 MG/ML AMPULE IV ONE (05:40)
[2019-09-28 05:53] LABS: ARTERIAL BLOOD FIO2 60%
[2019-09-28] MEDS ORDERED: MIDAZOLAM 2 MG/2 ML INJ ONE (06:12)
[2019-09-28] MEDS ORDERED: RINGERS SOLUTION,LACTATED 1,000 ML IV ONE (06:24)
[2019-09-28] MEDS ORDERED: KETAMINE HCL INJ 500 MG/10 ML VIAL IV ONE (06:44)
[2019-09-28] MEDS: INSULIN REG, HUMAN 100 UNIT/ML 3 ML VIAL (PYX) SUBCUT SCH ×3 (06:52→18:58)
[2019-09-28] MEDS: METHYLPREDNISOLONE INJ 40 MG/1 ML SDV IV SCH ×3 (06:52→21:27)
[2019-09-28] MEDS ORDERED: KETAMINE HCL INJ 500 MG/10 ML VIAL ONE (06:55)
[2019-09-28] MEDS: PROPOFOL 1,000 MG/100 ML INFUS..BTL IV PRN ×2 (07:00→14:37)
[2019-09-28] MEDS ORDERED: IPRATROPIUM/ALBUTEROL 0.5-2.5 MG/3 ML AMPUL NEB SCH (08:00)
--- NOTE | 2019-09-28 08:38 | CRITICAL CARE ADMISSION REPORT ---
HPI Date:: 09/28/19 Time:: 05:48 Reason for ICU Reason:: Acute respiratory failure with hypoxia and hypercapnia, probable COPD exacerbation, possible sepsis HPI: Mr. Queen is a 44-year-old male with a past medical history significant for IVDA in which he has a Hx of taking Subutex, asthma, influenza A in July 2019, COPD with chronic bronchitis and recent exacerbation in August 2019 who was found to be extremely lethargic on the porch by his mother for which she called EMS. EMS administered intranasal naloxone, Solu-Medrol, magnesium, a DuoNeb as well as place the patient on CPAP for which they reportedly were unable to achieve an SPO2 higher than 87%. The patient was brought to [facility] ED for which he was intubated due to refractory hypoxia on BiPAP reportedly with an SPO2 in the 70s to 80s. His initial ABG demonstrated a pH of 6.91 and a PaCO2 of 117 with a repeat pending. He was found to have a leukocytosis of 23k, thrombocytosis, and lactate of 5.1 which he received 30 mL/kg of crystalloid IV solution for sepsis. Blood and urine cultures were obtained followed by administration of empiric Vancomycin and Zosyn. ICU was consulted for management of mechanical ventilator. Patient to be admitted to ICU for acute respiratory failure due to hypoxia and hypercapnia, probable COPD exacerbation, and possible sepsis. To note, the patient has been made a COVID-19 PUI by the ED. Chest x-ray is clear History obtained from:: ER physician, medical record review - Diagnosis/Plan (1) Acute respiratory failure with hypoxia and hypercapnia Is this a current diagnosis for this admission?: Yes Plan: support with mechanical ventilator Correct respiratory acidosis Solu-medrol, Duo-nebs (2) Suspected COVID-19 virus infection Is this a current diagnosis for this admission?: Yes Plan: A COVID-19 swab was performed in the ED and will need to be followed up. Patient will be placed in isolation as PUI until then. (3) History of asthma Is this a current diagnosis for this admission?: Yes Plan: scheduled Duo-nebs (4) Hypothermia Qualifiers: Encounter type: initial encounter Qualified Code(s): T68.XXXA - Hypothermia, initial encounter Is this a current diagnosis for this admission?: Yes Plan: Warming blanket with goal 96-97 degrees Fahrenheit (5) Sepsis Qualifiers: Sepsis type: sepsis due to unspecified organism Sepsis acute organ dysfunction status: with acute organ dysfunction Severe sepsis acute organ dysfunction type: acute respiratory failure Acute respiratory failure type: with hypoxia Severe sepsis shock status: without septic shock Qualified Code(s): A41.9 - Sepsis, unspecified organism; R65.20 - Severe sepsis without septic shock; J96.01 - Acute respiratory failure with hypoxia Is this a current diagnosis for this admission?: Yes Plan: Possible sepsis. Leukocytosis, hypothermia, tachypnea, end-organ failure. Obtain tracheal aspirate, viral Cx, r/o Influenza A/B via RT-PCR, r/o Strep throat. Empiric Abx. F/U Cx's Already received 30 ml/kg sepsis crystalloid bolus. (6) Leukocytosis Is this a current diagnosis for this admission?: Yes Plan: see plan for sepsis above AM CBC (7) COPD exacerbation Is this a current diagnosis for this admission?: Yes Plan: Steroids, empiric Abx, scheduled nebs. Search for source of infection contributing to exacerbation. (8) Acidosis, metabolic, with respiratory acidosis Is this a current diagnosis for this admission?: Yes Plan: 2nd ABG is a venous stick based on the PaO2 of 48 with an SPO2 on the monitor of 100%. Fluid resuscitation, increase minute ventilation, repeat ABG. (9) IV drug abuse Is this a current diagnosis for this admission?: No Plan: Hx of IVDA for which not all abused drugs show up on toxicology. Toxicology positive for marijuana abuse at this time. (10) Depression Qualifiers: Depression Type: unspecified Qualified Code(s): F32.9 - Major depressive disorder, single episode, unspecified Is this a current diagnosis for this admission?: Yes Plan: need to determine what, if any, medication patient takes and resume to avoid abrupt withdrawal (11) Hyperglycemia Is this a current diagnosis for this admission?: Yes Plan: Check HgbA1c Start ISS q6h (12) Marijuana abuse Is this a current diagnosis for this admission?: Yes Plan: + on toxicology; provide cessation counseling prior to discharge Past Medical History Pulmonary Medical History: Reports: Asthma, Bronchitis - chronic, Chronic Obstructive Pulmonary Disease (COPD), Pneumonia, Other - influenza A July 2019 Psychiatric Medical History: Reports: Depression Past Surgical History Past Surgical History: Reports: Vascular Surgery - left carotid artery Social/Family History - Social History Lives with: Family Smoking Status: Former Smoker - per medical record review Frequency of Alcohol Use: None Drugs: Heroin, Marijuana, Other - IVDA Hx Prescription Drug Abuse: No - Medication/Allergies Home Medications: Lidocaine [Lidoderm 5% (700 mg) Transdermal Patch] 1 patch TP DAILY #7 adh..patch 08/28/19 Methocarbamol [Robaxin 500 mg Tablet] 500 mg PO QID PRN #20 tablet 08/28/19 Prednisone [Deltasone 20 mg Tablet] 3 tab PO DAILY 5 Days #15 tablet 08/28/19 Allergies/Adverse Reactions: No Known Allergies Allergy (Verified 09/28/19 04:30) Review of Systems ROS unobtainable: Due to endotracheal tube, Due to mental status Physical Exam Vital Signs: Temp Pulse Resp BP Pulse Ox 73 17 127/82 H 100 09/28/19 03:03 09/28/19 05:26 09/28/19 05:26 09/28/19 05:26 Intake & Output 09/26/19 09/27/19 09/28/19 06:59 06:59 06:59 Intake Total 11 Balance 11 Weight 76.2 kg Weight/Height Weight 76.2 kg General appearance: PRESENT: mild distress, thin Head exam: PRESENT: atraumatic, normocephalic Eye exam: PRESENT: PERRLA Ear exam: PRESENT: normal external ear exam Mouth exam: PRESENT: dry mucosa, neck supple, tongue midline Neck exam: PRESENT: full ROM. ABSENT: JVD, lymphadenopathy, tracheal deviation Respiratory exam: PRESENT: accessory muscle use, symmetrical, tachypnea, other - Lung sounds not auscultated secondary to the confines of PPE and poor auditory capability of disposable stethoscope Cardiovascular exam: PRESENT: RRR, other - Cardiac sounds not auscultated second ace to the confines of PPE and poor auditory capability of disposable stethoscope Pulses: PRESENT: normal radial pulses, +2 pedal pulses bilateral Vascular exam: PRESENT: normal capillary refill GI/Abdominal exam: PRESENT: soft, other - Bowel sounds not auscultated secondary to the confines of PPE and poor auditory capability of disposable stethoscope. ABSENT: distended, tenderness Rectal exam: PRESENT: deferred Extremities exam: PRESENT: full ROM. ABSENT: joint swelling, pedal edema Musculoskeletal exam: PRESENT: full ROM, normal inspection Neurological exam: PRESENT: other - intubated, sedated Skin exam: PRESENT: dry, intact, normal color, warm. ABSENT: jaundice Tubes/Lines: PRESENT: Endotracheal Tube Laboratory/Radiographs Laboratory Results: 09/28/19 03:15 09/28/19 03:15 09/28/19 09/28/19 09/28/19 03:15 03:15 03:15 WBC 22.6 H RBC 4.94 Hgb 13.8 Hct 42.0 MCV 85 MCH 27.9 MCHC 32.8 RDW 13.3 Plt Count 521 H Seg Neutrophils % Not Reportable Carbonic Acid HCO3/H2CO3 Ratio ABG pH ABG pCO2 ABG pO2 ABG HCO3 ABG O2 Saturation ABG Base Excess FiO2 Sodium 138.9 Potassium 5.5 H Chloride 105 Carbon Dioxide 23 Anion Gap 11 BUN 9 Creatinine 0.92 Est GFR ( Amer) > 60 Glucose 330 H Lactic Acid 5.1 H Calcium 9.0 Total Bilirubin 0.3 AST 30 Alkaline Phosphatase 73 Total Protein 6.6 Albumin 3.9 Urine Color Urine Appearance Urine pH Ur Specific [place] Urine Protein Urine Glucose (UA) Urine Ketones Urine Blood Urine RBC (Auto) 09/28/19 09/28/19 03:15 03:49 WBC RBC Hgb Hct MCV MCH MCHC RDW Plt Count Seg Neutrophils % Carbonic Acid 3.53 H HCO3/H2CO3 Ratio 6:1 ABG pH 6.91 L* ABG pCO2 117.4 H* ABG pO2 124.4 H ABG HCO3 23.0 ABG O2 Saturation 95.1 ABG Base Excess -12.4 FiO2 60% Sodium Potassium Chloride Carbon Dioxide Anion Gap BUN Creatinine Est GFR ( Amer) Glucose Lactic Acid Calcium Total Bilirubin AST Alkaline Phosphatase Total Protein Albumin Urine Color YELLOW Urine Appearance SLIGHTLY-CLOUDY Urine pH 6.0 Ur Specific [place] 1.013 Urine Protein 100 H Urine Glucose (UA) >=500 H Urine Ketones NEGATIVE Urine Blood SMALL H Urine RBC (Auto) 4 09/28/19 03:15 Troponin I < 0.012 NT-Pro-B Natriuret Pep 72 Impressions: Chest X-Ray 09/28/19 03:14 IMPRESSION: Endotracheal and enteric tubes in place. Lungs are clear copyright 2011 [email or web address]- All Rights Reserved Per my read, the endotracheal tube is approximately 8 cm above the jose which needs to be advanced approximately 4 cm. I spoke with RT Britany. Gastric tube visualized entering the stomach though the tip cannot be determined at this woo e. All labs, radiographs, diagnostic studies and EKGs were personally reviewed: Yes In addition, reports of radiographic and diagnostic studies were read: Yes Critical Time Critical Time (minutes): 70 -: The care of a critically ill patient is dynamic. This note represents a static moment in the admission process. Orders and treatments may be given simultaneously and urgently, and time is not chemical sales representative of the treatment process. This patient requires Critical Care secondary to life threatening organ or limb dysfunction. Without Critical Care services, the patient is at risk for increased mortality and morbidity.
[2019-09-28] MEDS ORDERED: FAMOTIDINE INJ/PF 20 MG/2 ML SDV IV SCH (10:00)
[2019-09-28] MEDS ORDERED: SUCCINYLCHOLINE CHLORIDE INJ 200 MG/10 ML VIAL ONE (10:55)
[2019-09-28] MEDS: ENOXAPARIN SODIUM INJ 40 MG/0.4 ML DISP.SYRIN SUBCUT SCH (11:10)
[2019-09-28] MEDS: 1/2 NORMAL SALINE 1,000 ML IV PRN ×2 (11:11→19:45)
[2019-09-28 11:14] LABS: ARTERIAL BLOOD BASE EXCESS -3.8 mmol/L; ARTERIAL BLOOD FIO2 21%; ARTERIAL BLOOD H2CO3 1.18 mmol/L (1.05-1.35); ARTERIAL BLOOD HCO3 21.4 mmol/L (20-24); ARTERIAL BLOOD O2 SATURATION 94.6 % (94-98); ARTERIAL BLOOD PCO2 39.3 mmHg (35-45); ARTERIAL BLOOD PH 7.35 (7.35-7.45); ARTERIAL BLOOD PO2 75.6 mmHg (80-100); ARTERIAL BLOOD TOTAL CO2 22.6 mmol/L (23-27)
[2019-09-28] MEDS ORDERED: IPRATROPIUM/ALBUTEROL 0.5-2.5 MG/3 ML AMPUL NEB PRN ×2 (12:09→15:10)
[2019-09-28] MEDS ORDERED: (PENDING PHARMACY ID) (Albuterol Sulfate 1 PUFF) IH PRN (15:10)
[2019-09-28] MEDS ORDERED: ALBUTEROL SULFATE 0.083% NEB 2.5 MG/3 ML AMPUL NEB PRN (15:10)
[2019-09-28] MEDS ORDERED: IBUPROFEN 800 MG TABLET PO PRN (15:10)
[2019-09-28] MEDS ORDERED: RACEPINEPHRINE HCL 2.25% NEB 0.5 ML AMPUL NEB ONE ×2 (16:49→18:00)
[2019-09-28] MEDS ORDERED: (PENDING PHARMACY ID) (Naproxen [Naprosyn] 500 MG) PO SCH (18:00)
[2019-09-28 21:11] LABS: ABSOLUTE LYMPHOCYTES (AUTO) 0.7 10^3/uL (0.5-4.7); ABSOLUTE MONOCYTES (AUTO) 0.1 10^3/uL (0.1-1.4); ABSOLUTE NEUT (AUTO) 10.3 10^3/uL (1.7-8.2); BASOPHILS % (AUTO) 0.1 % (0-2); EOSINOPHILS % (AUTO) 0.1 % (0-6); HEMATOCRIT 39.3 % (37.9-51.0); HEMOGLOBIN 13.6 g/dL (13.5-17.0); LYMPHOCYTES % (AUTO) 5.9 % (13-45); MEAN CORPUSCULAR HEMOGLOBIN 28.1 pg (27.0-33.4); MEAN CORPUSCULAR HGB CONC 34.7 g/dL (32.0-36.0); MONOCYTES % (AUTO) 1.3 % (3-13); PLATELET COUNT 310 10^3/uL (150-450); RED BLOOD COUNT 4.86 10^6/uL (4.35-5.55); RED CELL DISTRIBUTION WIDTH 13.4 % (11.5-14.0); SEGMENTED NEUTROPHILS % (AUTO) 92.6 % (42-78); TOTAL CELLS COUNTED % (AUTO) 100 %; WHITE BLOOD COUNT 11.2 10^3/uL (4.0-10.5)
[2019-09-28] MEDS: FLUTICASONE NASAL SPRAY 50 MCG/SPRY 120 SPRAY/16 GM NASL SCH (21:24)
[2019-09-28 21:26] LABS: ANION GAP 8 (5-19); BLOOD UREA NITROGEN 12 mg/dL (7-20); CALCIUM 9.2 mg/dL (8.4-10.2); CARBON DIOXIDE 24 mmol/L (22-30); CHLORIDE 107 mmol/L (98-107); GLUCOSE 118 mg/dL (75-110); PHOSPHORUS 3.6 mg/dL (2.5-4.5)
[2019-09-28 21:29] LABS: MEAN CORPUSCULAR VOLUME 81 fl (80-97)
[2019-09-28 21:34] LABS: POTASSIUM 4.5 mmol/L (3.6-5.0)
[2019-09-29] MEDS: INSULIN REG, HUMAN 100 UNIT/ML 3 ML VIAL (PYX) SUBCUT SCH (00:31)
[2019-09-29] MEDS ORDERED: ALBUTEROL SULFATE HFA (90 MCG/PUFF) 8 GM MDI IH ONE (04:50)
[2019-09-29 05:03] LABS: ABSOLUTE LYMPHOCYTES (AUTO) 0.8 10^3/uL (0.5-4.7); ABSOLUTE MONOCYTES (AUTO) 0.2 10^3/uL (0.1-1.4); ABSOLUTE NEUT (AUTO) 10.3 10^3/uL (1.7-8.2); BASOPHILS % (AUTO) 0.2 % (0-2); EOSINOPHILS % (AUTO) 0.1 % (0-6); HEMATOCRIT 39.1 % (37.9-51.0); HEMOGLOBIN 13.4 g/dL (13.5-17.0); MEAN CORPUSCULAR HEMOGLOBIN 27.7 pg (27.0-33.4); MEAN CORPUSCULAR HGB CONC 34.1 g/dL (32.0-36.0); MEAN CORPUSCULAR VOLUME 81 fl (80-97); MONOCYTES % (AUTO) 2.1 % (3-13); PLATELET COUNT 325 10^3/uL (150-450); RED BLOOD COUNT 4.81 10^6/uL (4.35-5.55); RED CELL DISTRIBUTION WIDTH 13.7 % (11.5-14.0); SEGMENTED NEUTROPHILS % (AUTO) 90.6 % (42-78); TOTAL CELLS COUNTED % (AUTO) 100 %; WHITE BLOOD COUNT 11.4 10^3/uL (4.0-10.5)
[2019-09-29] MEDS: 1/2 NORMAL SALINE 1,000 ML IV PRN (06:32)
[2019-09-29] MEDS: METHYLPREDNISOLONE INJ 40 MG/1 ML SDV IV SCH ×2 (06:32→13:06)
[2019-09-29] MEDS ORDERED: LEVOFLOXACIN 500 MG TABLET PO SCH (07:31)
[2019-09-29] MEDS ORDERED: (PENDING PHARMACY ID) (Buprenorphine Hcl [Buprenorphine Hcl] 8 MG) PO SCH (08:00)
[2019-09-29] MEDS: BUPRENORPHINE HCL 2 MG SUBLINGUAL TABLET SL SCH ×2 (08:38→13:06)
[2019-09-29] MEDS: FLUTICASONE NASAL SPRAY 50 MCG/SPRY 120 SPRAY/16 GM NASL SCH (09:19)
[2019-09-29] MEDS: ENOXAPARIN SODIUM INJ 40 MG/0.4 ML DISP.SYRIN SUBCUT SCH (09:20)
[2019-09-29] MEDS ORDERED: ALBUTEROL SULFATE HFA (90 MCG/PUFF) 8 GM MDI IH PRN (12:04)
[2019-09-29 12:58] VITALS: BP 113/73
--- NOTE | 2019-09-29 13:11 | PDOC DISCHARGE SUMMARY ---
Impression - Admit/DC Date/PCP Admission Date/Primary Care Provider: 09/28/19 05:34 Discharge Date: 09/29/19 - Discharge Diagnosis (1) Acidosis, metabolic, with respiratory acidosis Is this a current diagnosis for this admission?: Yes (2) Acute respiratory failure with hypoxia and hypercapnia Is this a current diagnosis for this admission?: Yes (3) History of asthma Is this a current diagnosis for this admission?: Yes (4) Marijuana abuse Is this a current diagnosis for this admission?: Yes (5) Suspected COVID-19 virus infection Is this a current diagnosis for this admission?: No (6) COPD exacerbation Is this a current diagnosis for this admission?: Yes - Assessment Summary: This patient is a 44 yo man with COPD, asthma who presents obtunded and with evidence of both hypercarbia and hypoxia and was quickly intubated. His tox screen was positive for THC but this is an unusual reaction for THC. He is now extubated, awake, feeling at his baseline. He has been through this before and has been on high dose prednisone at 50-60mg / day. He will be discharged on 60mg a day. - Additional Information Resuscitation Status: Full Code Discharge Diet: Regular Discharge Activity: Activity As Tolerated Home Medications: Albuterol Sulfate [Proair HFA Inhalation Aerosol 8.5 gm MDI] 1 puff IH Q4HP PRN 09/28/19 Albuterol Sulfate [Ventolin 0.083% Neb 2.5 mg/3 mL Ampul] 2.5 mg NEB RTQ4HP PRN 09/28/19 Buprenorphine HCl 8 mg PO BID@0800,1200 09/28/19 Fluticasone Propionate [Flonase Nasal Hubert 50 Mcg/Hubert 16 gm] 2 spray NASL Q12 09/28/19 Ibuprofen [Motrin 800 mg Tablet] 800 mg PO Q8HP PRN 09/28/19 Ipratropium/Albuterol Sulfate [Duoneb 3 ml Ampul] 3 ml NEB RTQ6HP PRN 09/28/19 Naproxen [Naprosyn] 500 mg PO BID 09/28/19 History of Present Illiness History of Present Illness: KERON LIRIANO is a 44 year old male with COPD exacerbation, now extubated. To go home on prednisone and levoquin Hospital Course Hospital Course: His course was uneventful being extubated the morning of 09/27 and back to his baseline by 09/28. Physical Exam Vital Signs: Temp Pulse Resp BP Pulse Ox 98.2 F 61 16 128/78 H 98 09/29/19 10:00 09/29/19 07:56 09/29/19 10:00 09/29/19 09:30 09/29/19 10:00 Intake & Output 09/28/19 09/29/19 09/30/19 06:59 06:59 06:59 Intake Total 24 6503 537 Output Total 4130 830 Balance 24 0553 -293 Weight 78.5 kg 75.8 kg General appearance: PRESENT: no acute distress, well-developed, well-nourished Head exam: PRESENT: atraumatic, normocephalic Eye exam: PRESENT: conjunctiva pink, EOMI, PERRLA. ABSENT: scleral icterus Ear exam: PRESENT: normal external ear exam Mouth exam: PRESENT: moist, tongue midline Neck exam: ABSENT: carotid bruit, JVD, lymphadenopathy, thyromegaly Respiratory exam: PRESENT: clear to auscultation lanny. ABSENT: rales, rhonchi, wheezes Cardiovascular exam: PRESENT: RRR. ABSENT: diastolic murmur, rubs, systolic murmur Pulses: PRESENT: normal dorsalis pedis pul GI/Abdominal exam: PRESENT: normal bowel sounds, soft. ABSENT: distended, guarding, mass, organolmegaly, rebound, tenderness Rectal exam: PRESENT: deferred Extremities exam: PRESENT: full ROM. ABSENT: calf tenderness, clubbing, pedal edema Neurological exam: PRESENT: alert, awake, oriented to person, oriented to place, oriented to time, oriented to situation, CN II-XII grossly intact. ABSENT: motor sensory deficit Psychiatric exam: PRESENT: appropriate affect, normal mood. ABSENT: homicidal ideation, suicidal ideation Results Laboratory Results: WBC 11.4 10^3/uL (4.0-10.5) H 09/29/19 04:05 RBC 4.81 10^6/uL (4.35-5.55) 09/29/19 04:05 Hgb 13.4 g/dL (13.5-17.0) L 09/29/19 04:05 Hct 39.1 % (37.9-51.0) 09/29/19 04:05 MCV 81 fl (80-97) 09/29/19 04:05 MCH 27.7 pg (27.0-33.4) 09/29/19 04:05 MCHC 34.1 g/dL (32.0-36.0) 09/29/19 04:05 RDW 13.7 % (11.5-14.0) 09/29/19 04:05 Plt Count 325 10^3/uL (150-450) 09/29/19 04:05 Lymph % (Auto) 7.0 % (13-45) L 09/29/19 04:05 [place] % (Auto) 2.1 % (3-13) L 09/29/19 04:05 Eos % (Auto) 0.1 % (0-6) 09/29/19 04:05 Baso % (Auto) 0.2 % (0-2) 09/29/19 04:05 Absolute Neuts (auto) 10.3 10^3/uL (1.7-8.2) H 09/29/19 04:05 Absolute Lymphs (auto) 0.8 10^3/uL (0.5-4.7) 09/29/19 04:05 Absolute Monos (auto) 0.2 10^3/uL (0.1-1.4) 09/29/19 04:05 Absolute Eos (auto) 0.0 10^3/uL (0.0-0.6) 09/29/19 04:05 Absolute Basos (auto) 0.0 10^3/uL (0.0-0.2) 09/29/19 04:05 Total Counted 100 09/28/19 03:15 Seg Neutrophils % 90.6 % (42-78) H 09/29/19 04:05 Seg Neuts % (Manual) 39 % (42-78) L 09/28/19 03:15 Band Neutrophils % 1 % (3-5) L 09/28/19 03:15 Lymphocytes % (Manual) 41 % (13-45) 09/28/19 03:15 Atypical Lymphs % 2 % (0) 09/28/19 03:15 Monocytes % (Manual) 9 % (3-13) 09/28/19 03:15 Eosinophils % (Manual) 7 % (0-6) H 09/28/19 03:15 Basophils % (Manual) 1 % (0-2) 09/28/19 03:15 Abs Neuts (Manual) 9.0 10^3/uL (1.7-8.2) H 09/28/19 03:15 Abs Lymphs (Manual) 9.7 10^3/uL (0.5-4.7) H 09/28/19 03:15 Abs Monocytes (Manual) 2.0 10^3/uL (0.1-1.4) H 09/28/19 03:15 Absolute Eos (Manual) 1.6 10^3/uL (0.0-0.6) H 09/28/19 03:15 Abs Basophils (Manual) 0.2 10^3/uL (0.0-0.2) 09/28/19 03:15 Toxic Vacuolation PRESENT 09/28/19 03:15 Clumped Platelets PRESENT 09/28/19 03:15 Platelet Comment INCREASED 09/28/19 03:15 RBC Morph Comment NORMO-CYTIC/CHROMIC 09/28/19 03:15 PT 14.6 SEC (11.4-15.4) 09/28/19 03:15 INR 1.13 09/28/19 03:15 Carbonic Acid 1.18 mmol/L (1.05-1.35) 09/28/19 11:10 HCO3/H2CO3 Ratio 18:1 09/28/19 11:10 ABG pH 7.35 (7.35-7.45) 09/28/19 11:10 ABG pCO2 39.3 mmHg (35-45) 09/28/19 11:10 ABG pO2 75.6 mmHg (80-100) L 09/28/19 11:10 ABG HCO3 21.4 mmol/L (20-24) 09/28/19 11:10 ABG Total CO2 22.6 mmol/L (23-27) L 09/28/19 11:10 ABG O2 Saturation 94.6 % (94-98) 09/28/19 11:10 ABG Base Excess -3.8 mmol/L 09/28/19 11:10 FiO2 21% 09/28/19 11:10 Sodium 138.6 mmol/L (137-145) 09/28/19 20:50 Potassium 4.5 mmol/L (3.6-5.0) D 09/28/19 20:50 Chloride 107 mmol/L (98-107) 09/28/19 20:50 Carbon Dioxide 24 mmol/L (22-30) 09/28/19 20:50 Anion Gap 8 (5-19) 09/28/19 20:50 BUN 12 mg/dL (7-20) 09/28/19 20:50 Creatinine 0.66 mg/dL (0.52-1.25) 09/28/19 20:50 Est GFR ( Amer) > 60 (>60) 09/28/19 20:50 Est GFR (MDRD) Non-Af > 60 (>60) 09/28/19 20:50 Glucose 118 mg/dL (75-110) H 09/28/19 20:50 POC Glucose 122 mg/dL (70-110) H 09/29/19 00:15 Hemoglobin A1c % 5.3 % (4.7-6.0) 09/28/19 03:15 Lactic Acid 2.4 mmol/L (0.7-2.1) H 09/28/19 20:50 Calcium 9.2 mg/dL (8.4-10.2) 09/28/19 20:50 Phosphorus 3.6 mg/dL (2.5-4.5) 09/28/19 20:50 Magnesium 2.1 mg/dL (1.6-2.3) 09/28/19 20:50 Total Bilirubin 0.3 mg/dL (0.2-1.3) 09/28/19 03:15 Direct Bilirubin 0.0 mg/dL (0.0-0.4) 09/28/19 03:15 Neonat Total Bilirubin Not Reportable 09/28/19 03:15 Neonat Direct Bilirubin Not Reportable 09/28/19 03:15 Neonat Indirect Bili Not Reportable 09/28/19 03:15 AST 30 U/L (17-59) 09/28/19 03:15 ALT 24 U/L (<50) 09/28/19 03:15 Alkaline Phosphatase 73 U/L (38-126) 09/28/19 03:15 Troponin I < 0.012 ng/mL 09/28/19 03:15 NT-Pro-B Natriuret Pep 72 pg/mL (<125) 09/28/19 03:15 Total Protein 6.6 g/dL (6.3-8.2) 09/28/19 03:15 Albumin 3.9 g/dL (3.5-5.0) 09/28/19 03:15 Triglycerides 187 mg/dL (<150) H 09/28/19 03:15 Urine Color YELLOW 09/28/19 03:49 Urine Appearance SLIGHTLY-CLOUDY 09/28/19 03:49 Urine pH 6.0 (5.0-9.0) 09/28/19 03:49 Ur Specific [place] 1.013 09/28/19 03:49 Urine Protein 100 mg/dL (NEGATIVE) H 09/28/19 03:49 Urine Glucose (UA) >=500 mg/dL (NEGATIVE) H 09/28/19 03:49 Urine Ketones NEGATIVE mg/dL (NEGATIVE) 09/28/19 03:49 Urine Blood SMALL (NEGATIVE) H 09/28/19 03:49 Urine Nitrite (Reflex) NEGATIVE (NEGATIVE) 09/28/19 03:49 Urine Bilirubin NEGATIVE (NEGATIVE) 09/28/19 03:49 Urine Urobilinogen NEGATIVE mg/dL (<2.0) 09/28/19 03:49 Leukocyte Esterase Rfl TRACE (NEGATIVE) H 09/28/19 03:49 Urine RBC (Auto) 4 /HPF 09/28/19 03:49 U Hyaline Cast (Auto) 58 /LPF 09/28/19 03:49 Urine WBC (Reflex) 6 /HPF 09/28/19 03:49 Squamous Epi Cells Auto 1 /HPF 09/28/19 03:49 Urine Mucus (Auto) RARE /LPF 09/28/19 03:49 Urine Ascorbic Acid 20 (NEGATIVE) H 09/28/19 03:49 Urine Opiates Screen NEGATIVE 09/28/19 03:49 Urine Methadone Screen NEGATIVE 09/28/19 03:49 Ur Barbiturates Screen NEGATIVE 09/28/19 03:49 Ur Phencyclidine Scrn NEGATIVE 09/28/19 03:49 Ur Amphetamines Screen NEGATIVE 09/28/19 03:49 U Benzodiazepines Scrn NEGATIVE 09/28/19 03:49 Urine Cocaine Screen NEGATIVE 09/28/19 03:49 U Marijuana (THC) Screen UNCONFIRMED POSITIVE 09/28/19 03:49 Serum Alcohol < 10 mg/dL (NONE DETECTED) 09/28/19 03:15 COVID-19 Source NASOPHARYNGEAL 09/28/19 03:19 COVID-19 (ANGEL) NOT DETECTED 09/28/19 03:19 Group A Strep Rapid NEGATIVE (NEGATIVE) 09/28/19 10:30 09/28/19 03:15 Troponin I < 0.012 NT-Pro-B Natriuret Pep 72 Impressions: Chest X-Ray 09/28/19 03:14 IMPRESSION: Endotracheal and enteric tubes in place. Lungs are clear copyright 2011 [employer]- All Rights Reserved Plan Health Concerns: His covid test is negative and with his COPD he is safer being at home and not in the hospital. Plan of Treatment: Prednisone for 2 weeks. Levoquin for one. Goals: Keep COPD under control Critical Time: 30 Level of Care: MEDICAL Stroke Is this a Stroke Patient?: No Acute Heart Failure - Is this a Heart Failure Patient?: No
== END 2019-09-29 14:24 | disposition home or self-care (01) | DRG 208 ==
LOC: ER 03:00 → EH 05:34 → ICU 06:23
PROVIDERS: ADMIT Anesthesiology; ATTEND Anesthesiology
PROC: 5A1935Z Respiratory Ventilation, Less than 24 Consecutive Hours (ICD-10-PCS; principal; 2019-09-28)
PROC: 0BH17EZ Insertion of Endotracheal Airway into Trachea, Via Natural or Artificial Opening (ICD-10-PCS; 2019-09-28)
DX: J96.01 Acute respiratory failure with hypoxia (principal); J44.1 Chronic obstructive pulmonary disease with (acute) exacerbation; E87.4 Mixed disorder of acid-base balance; Z03.818 Encounter for observation for suspected exposure to other biological agents ruled out; F12.10 Cannabis abuse, uncomplicated; F32.9 Major depressive disorder, single episode, unspecified; R73.9 Hyperglycemia, unspecified; Z87.891 Personal history of nicotine dependence; Z79.51 Long term (current) use of inhaled steroids; R68.0 Hypothermia, not associated with low environmental temperature; Z87.898 Personal history of other specified conditions; Z78.1 Physical restraint status
CPT/HCPCS: 36415; 51702; 71045; 80053; 80307; 81001; 82803; 82962; 83036; 83605; 83735; 83880; 84100; 84478; 84484; 85025; 85610; 87040; 87070; 87077; 87086; 87205; 87252; 87502; 87635; 87880; 94002; 94640; 96365; 96375; 99238; 99291; 99292; J0330; J0571; J1170; J1650; J1815; J2060; J2250; J2543; J2704; J2920; J3370; J3490; J7030; J7120; S0028